=== PATIENT | female | born 1950 | race Caucasian/White ===

== ENCOUNTER 2017-09-19 03:24 | Observation (INO) | payer OTHER ==
[~2017-09-19] VITALS: Ht 170.2 cm; Wt 117.9 kg
[~2017-09-19 03:24] MED LIST: AMARYL1 MG PO; AMBIEN 10MG10 MG PO; ATORVASTATIN CA40 M1 PO; ATORVASTATIN CA40 MG PO; BREO ELLIPTA 21 EACH INH; CELEXA20 MG PO; CITALOPRAM HBR40 MG PO; CITALOPRAM40 MG PO; CLOPIDOGREL75 M1 PO; CLOPIDOGREL75 MG PO; DRISDOL50000 IU PO; GLIPIZIDE5 M2 PO; ILEVRO1.7 ML OD; LOPRESSOR 25MG25 MG PO; LORAZEPAM0.5 M1 PO; LYRICA50 M1 PO; LYRICA50 MG PO; METFORMIN HCL500 M3 PO; METFORMIN HCL500 MG PO; METOPROLOL TART25 M1 PO; PREDNISOLONE ACE5 ML OD; VENTOLIN H0.09 MG/Ac INH; VENTOLIN HFA18 GM INH; VITAB121000 PO; ZOLPIDEM TARTRA10 M1 PO; ZYMAXID2.5 ML OD
--- NOTE | 2017-09-19 03:31 | ED MVC/FALL/TRAUMA COMPLAINT ---
History of Present Illness General Chief Complaint: Fall Stated Complaint: BIBA FALL Source: patient, EMS Exam Limitations: no limitations Vital Signs & Intake/Output Vital Signs & Intake/Output Vital Signs Date Time Temp Pulse Resp B/P B/P Pulse O2 O2 Flow FiO2 Mean Ox Delivery Rate 09/19 0519 97.7 90 16 155/65 97 09/19 0348 97 Room Air 09/19 0329 98.7 100 20 156/72 97 Room Air Allergies Coded Allergies: Penicillins (SWELLING ALL OVER PER PT 09/14/17) cat dander (SWELLING ALL OVER PER PT 09/14/17) prochlorperazine (From COMPAZINE) (SWELLING ALL OVER PER PT 09/14/17) Reconcile Medications Albuterol Sulfate (Ventolin Hfa) 90 MCG HFA.AER.AD 2 PUF INH Q4-6 PRN PRN COPD (Reported) Atorvastatin Calcium 40 MG TABLET 1 TAB PO DAILY CHOLESTEROL (Reported) Citalopram Hydrobromide (Citalopram HBr) 40 MG TABLET 1 TAB PO DAILY MENTAL HEALTH (Reported) Clopidogrel Bisulfate (Clopidogrel) 75 MG TABLET 1 TAB PO DAILY BLOOD THINNER (Reported) Fluticasone/Vilanterol (Breo Ellipta 200-25 Mcg INH) 200 MCG-25 MCG/DOSE BLST.W.DEV 1 PUFF INH DAILY COPD (Reported) Gatifloxacin (Zymaxid) 0.5 % DROPS 1 GTT OD 4 TIMES/DAY RIGHT EYE (Reported) Glipizide 5 MG TABLET 1 TAB PO BID DM (Reported) Lorazepam 0.5 MG TABLET 1 TAB PO Q8H PRN ANXIETY (Reported) Metformin HCl 500 MG TABLET 1 TAB PO TID DM (Reported) Metoprolol Tartrate 25 MG TABLET 1 TAB PO BID HEART/BP (Reported) Nepafenac (Ilevro) 0.3 % DROPS.SUSP 1 DROP OD DAILY RIGHT EYE (Reported) Prednisolone Acetate 1 % DROPS.SUSP 1 GTT OD 4 TIMES/DAY RIGHT EYE (Reported) Pregabalin (Lyrica) 50 MG CAPSULE 1 CAP PO DAILY NERVE PAIN (Reported) Zolpidem Tartrate 10 MG TABLET 1 TAB PO QPM SLEEP (Reported) Triage Nurses Notes Reviewed? yes Onset: Abrupt Duration: minute(s): Timing: single episode today Severity: moderate Method of Injury: fall Loss of Consciousness: no loss of consciousness Modifying Factors: Improves With: rest. Associated Symptoms: confusion HPI: 67 yo woman on plavix, presents after a fall. Per the medics, "She was in her kitchen... It looks like a mechanical fall... Her family heard her fall and were right there. She did not appear to lose consciousness. She didn't seem to have any injury and she was axox4.... She said the year was 1948, but then quickly said it was new year's earl and the year was 2018." Per the patient, she says, "The kids were all around me... I was baking cookies. " The medics note that there was no appearance of recent baking in the kitchen. She denies pain, headache, neck pain. Past History Medical History Any Pertinent Medical History? see below for history Neurological: TIA EENT: NONE Cardiovascular: hypertension, CABG Respiratory: COPD, pulmonary embolism Gastrointestinal: NONE Hepatic: NONE Renal: NONE Musculoskeletal: NONE Psychiatric: anxiety, depression, insomnia Endocrine: diabetes History of MRSA: No History of VRE: No History of CDIFF: No Pneumonia Vaccine: 05/27/13 Influenza Vaccine: 06/30/13 Surgical History Surgical History: appendectomy, CABG, hernia repair-umbilical, TONSILS Psychosocial History Who do you live with Family Services at Home None What is your primary language Welsh Family History Family History, If Any: FATHER FH: heart disease FH: migraine headache FH: stroke Grandmother FH: heart disease FH: stroke Hx Contributory? No Review of Systems Review of Systems Constitutional: Reports: no symptoms. Eyes: Reports: no symptoms. Ears, Nose, Throat, Mouth: Reports: no symptoms. Respiratory: Reports: no symptoms. Cardiovascular: Reports: no symptoms. Gastrointestinal/Abdominal: Reports: no symptoms. Genitourinary: Reports: no symptoms. Musculoskeletal: Reports: no symptoms. Skin: Reports: no symptoms. Neurological/Psychological: Reports: no symptoms. All Other Systems: Reviewed and Negative Physical Exam Physical Exam General Appearance: mild distress Head: submental/mandibular bruising at contact with the hard collar forehead bruise 2cm. Eyes: Bilateral: normal appearance, PERRL, EOMI. Ears, Nose, Throat, Mouth: hearing grossly normal, moist mucous membrane Neck: normal inspection, supple, paraspinous muscle tender, no midline tenderness Respiratory: normal breath sounds, chest non-tender, no respiratory distress, quiet respiration, lungs clear Cardiovascular: regular rate/rhythm Gastrointestinal: normal bowel sounds, soft, non-tender, no organomegaly Back: normal inspection, normal range of motion, vertebral tenderness, muscle spasm, no vertebral tenderness Extremities: normal range of motion, bilateral knee diffuse tenderness. Neurologic/Psych: oriented x 3, pt knows name, place, date, but otherwise confused, "I was baking cookies" pt also slightly lethargic with slurred speach. no focal neuro deficit Skin: multiple bruises on chest, back at various ages. no focal tenderness. Core Measures ACS in differential dx? No CVA/TIA Diagnosis No Sepsis Present: No Sepsis Focused Exam Completed? No Progress Differential Diagnosis: C/T/L spine injury, ext injury, ICH Plan of Care: Orders Procedure Date/time Status CBC WITHOUT DIFFERENTIAL 09/20 0600 Active BASIC ELECTROLYTES PLUS BUN&CR 09/20 0600 Active Nothing by Mouth 09/19 B Active PT Evaluate & Treat 09/19 0631 Active Pathway - chart 09/19 0631 Active House Staff 09/19 0631 Active Patient Data 09/19 0631 Active Code Status 09/19 0631 Active Patient Data 09/19 0615 Active Saline Lock 09/[address] in observation 09/19 0608 Active Misc Message 09/19 0608 Active ED Holding Orders 09/19 0608 Active Vital Signs 09/19 0608 Active Code Status 09/19 0608 Complete Add-on Test (ER Only) 09/19 0450 Active Intake & Output 09/19 0348 Active URINE DRUGS OF ABUSE 09/19 0345 Complete ETHANOL 09/19 0340 Complete URINALYSIS 09/19 0334 Complete TROPONIN LEVEL 09/19 0334 Complete LIPASE 09/19 0334 Complete HEPATIC FUNCTION PANEL 09/19 0334 Complete CBC WITHOUT DIFFERENTIAL 09/19 0334 Complete BASIC METABOLIC PANEL 09/19 0334 Complete AMYLASE 09/19 0334 Complete EKG 09/19 0326 Active VTE Mechanical Prophylaxis 09/19 UNK Active Vital Signs 09/19 UNK Active MISTAKE 09/19 UNK Active Telemetry/Drain Cleaner 09/19 UNK Active Intake & Output 09/19 UNK Active Activity/Ambulation 09/19 UNK Active Laboratory Tests 09/19/ 0345: Urine Opiates Screen < 100.00, Methadone Screen 59, Barbiturate Screen < 60, Ur Phencyclidine Scrn < 6.00, Amphetamines Screen < 100, U Benzodiazepines Scrn < 85, Urine Cocaine Screen < 50, Urine Cannabis Screen < 5.00, Urine Color STRAW, Urine Clarity CLEAR, Urine pH 6.0, Ur Specific [place] <= 1.005, Urine Protein NEG, Urine Ketones NEG, Urine Nitrite NEG, Urine Bilirubin NEG, Urine Urobilinogen 0.2, Ur Leukocyte Esterase NEG, Ur Microscopic SEDIMENT EXAMINED, Urine RBC 1-3, Urine WBC RARE, Ur Epithelial Cells RARE, Urine Mucus RARE, Urine Hemoglobin TRACE-INTACT, Urine Glucose NEG 09/19/17 0340: Anion Gap 12, Estimated GFR > 60, BUN/Creatinine Ratio 16.7, Glucose 167 H, Calcium 9.6, Total Bilirubin 0.2, Direct Bilirubin 0.2, AST 24, ALT 33, Alkaline Phosphatase 113, Troponin I < 0.01, Total Protein 6.3, Albumin 3.8, Amylase < 30 L, Lipase 116, CBC w Diff NO MAN DIFF REQ, RBC 4.18 L, MCV 83.0, MCH 27.7, RDW 14.5, MPV 7.6, Gran % 58.2, Lymphocytes % 31.3, Monocytes % 8.1, Eosinophils % 1.9, Basophils % 0.5, Absolute Granulocytes 6.1, Absolute Lymphocytes 3.3, Absolute Monocytes 0.9 H, Absolute Eosinophils 0.2, Absolute Basophils 0, PUBS MCHC 33.4, Serum Alcohol < 10.0 Diagnostic Imaging: Viewed by Me: Radiology Read, CT Scan. Discussed w/RAD: Radiology Read, CT Scan. Radiology Impression: chest/abd/pelvic... soft tissue stranding. pulmonary nodule. otherwise benign... full report below. PATIENT: BEATA DE SANTIAGO PRESENT AGE: 67 PATIENT ACCOUNT NO: [id number] : 48 LOCATION: [facility] ORDERING PHYSICIAN: Jori Leal MD SERVICE DATE: EXAM TYPE: CAT - CT ABD & PELVIS W/O IV CONTRAS; CT CHEST WO IV CONTRAST EXAMINATION: CT CHEST, ABDOMEN AND PELVIS WITHOUT CONTRAST. CLINICAL INFORMATION: Fall, trauma. COMPARISON: No pertinent prior studies are available for comparison. TECHNIQUE: Multidetector volumetric imaging was performed from the thoracic inlet through the pubic symphysis without intravenous contrast. Sagittal and coronal reformatted images were obtained on the technologist workstation. Total exam dose-length product 1297 mGy-cm FINDINGS: CHEST: VASCULAR: The aorta is normal in caliber without evidence of aneurysm. Scattered atherosclerotic vascular calcification is noted. MEDIASTINUM: No mediastinal fluid or hematoma. No hilar or mediastinal lymphadenopathy. Sternotomy wires are noted. Three-vessel coronary artery calcification is noted. LUNG: Centrilobular emphysema is noted. A 5 mm subpleural pulmonary nodule is noted in the right upper lobe on series 5, slice 177. PLEURA: No pleural effusion. No pneumothorax. No pleural mass or thickening. CHEST WALL/AXILLA: Unremarkable. ABDOMEN/PELVIS : LIVER : The liver is normal in size, shape, and attenuation. No focal hepatic lesion or biliary ductal dilatation is present. GALLBLADDER, AND BILIARY TREE: There is cholelithiasis is noted without CT evidence of acute cholecystitis. PANCREAS: Normal; no mass or surrounding fluid. SPLEEN: Normal size. No focal lesion. ADRENAL GLANDS: Normal; no mass. KIDNEYS AND URETERS: The kidneys are normal in size, shape, and attenuation. No hydronephrosis, hydroureter, or calculi. URINARY BLADDER: No focal mass or wall thickening seen. No bladder calculi. GASTROINTESTINAL TRACT: No dilated or abnormal appearing small bowel. Sigmoid colonic diverticulosis is noted without diverticulitis. Normal appendix. VASCULAR STRUCTURES: Atherosclerotic vascular calcification is noted in the abdominal aorta without aneurysm. LYMPH NODES: No lymphadenopathy. The aorta is unremarkable. PELVIC VISCERA: Unremarkable. FREE FLUID: None. ABDOMINAL WALL: There is some asymmetric subcutaneous soft tissue stranding overlying the left hip. There is asymmetric subcutaneous density and stranding over the right flank. OSSEOUS STRUCTURES: Spinal alignment is maintained. No spinal fractures. Spondylosis with vacuum disc phenomenon is noted at L2-L3. No clavicle or scapula fracture. No displaced rib fracture seen. No sternal fracture seen. No sacral or pelvic fracture. The visualized hips are intact. IMPRESSION: 1. Subcutaneous soft tissue stranding over the right flank and left hip likely represents soft tissue contusion. No organizing hematoma. 2. Centrilobular emphysema. 3. 5 mm subpleural pulmonary nodule in the right upper lobe. If this patient is high risk which the presence of emphysema would suggest , consider follow-up CT in 12 months per Fleischner Society guidelines. 4. Diverticulosis without diverticulitis. DICTATED BY: Rian Underwood MD DATE/ TIME DICTATED:09/19/17446 GRAVITY PROSPECTING OBSERVER HELPER:AYAZ DATE/TIME TRANSCRIBED: 09/19/17446 CONFIDENTIAL, DO NOT COPY WITHOUT APPROPRIATE AUTHORIZATION. < Electronically signed in Other Vendor System> SIGNED BY: Rian Underwood MD 09/19/17 0501, bilateral knees... soft tissue swelling... no fx. Initial ED EKG: RBBB Departure Departure Disposition: STILL A PATIENT Condition: Stable Clinical Impression Primary Impression: Fall Secondary Impressions: Acute delirium, Contusion Referrals: Keanu BLOOD,Flroentino Elder (PCP/Family) Departure Forms: Customer Survey General Discharge Information Observation Note Spoke With: Yomi BLOOD,[facility] Physician Advisor Notified: HUDSON BLOOD,RK Elder Place Patient In: Non-ED OBS Care Area Rationale for Observation: My rational for observation is as follows . pt presents with fall and continues w/ delerium in the ED despite benign labs/ct scan. Pt admitted with similar symptoms in 2014, attributed to her ambien. In the ED presently, she continues with lethargy, slurred speech, perhaps due to ambien again, however etiology is uncertain. I discussed this with case management.... pt merits obs vs admission. Will place patient in obs, in expectation that her sensorium will clear. Pt may need PT eval and neuro consult if not improving.
[2017-09-19 03:52] LABS: ABSOLUTE BASOPHIL COUNT 0 /CUMM (0.0-0.2); ABSOLUTE EOSINOPHIL COUNT 0.2 /CUMM (0.0-0.7); ABSOLUTE GRANULOCYTE CT 6.1 /CUMM (1.4-6.5); ABSOLUTE LYMPH COUNT 3.3 /CUMM (1.2-3.4); ABSOLUTE MONOCYTE COUNT 0.9 /CUMM (0.10-0.60); BASOPHIL % 0.5 % (0.0-2.0); EOSINOPHIL % 1.9 % (0-5); GRANULOCYTE % 58.2 % (42.2-75.2); HEMATOCRIT 34.7 % (37-47); MEAN CORPUSCULAR HGB 27.7 PG (27.0-31.0); MEAN CORPUSCULAR HGB CONC 33.4 G/DL (33.0-37.0); MEAN PLATELET VOLUME 7.6 FL (7.4-10.4); PLATELET COUNT 424 /CUMM (130-400); RBC DISTRIBUTION WIDTH 14.5 % (11.5-14.5); RED BLOOD CELL CT 4.18 /CUMM (4.20-5.40); WHITE BLOOD CELL COUNT 10.5 /CUMM (4.8-10.8)
--- NOTE | 2017-09-19 04:51 | CT SCAN REPORT ---
EXAMINATION: CT HEAD WITHOUT CONTRAST CT CERVICAL SPINE WITHOUT CONTRAST CT FACIAL BONES WITHOUT CONTRAST CLINICAL INFORMATION: Fall, trauma COMPARISON: CT head dated 09/14/2017. TECHNIQUE: Imaging was performed from the skull base to vertex without intravenous administration of contrast. In addition, helical noncontrast CT imaging was acquired through the cervical spine and source images were reviewed along with axial reconstructions and sagittal and coronal MPRs. Finally, helical noncontrast CT imaging was acquired through the facial bones and source images were reviewed along with axial reconstructions and sagittal and coronal MPRs. Total exam dose-length product 1381 mGy-cm FINDINGS: HEAD: No intracranial mass, hemorrhage, or midline shift is visualized. The ventricles and sulci are age-appropriate. Cortical gupta to white differentiation is maintained without evidence of territorial infarct. Periventricular white matter hypoattenuation is noted compatible with mild chronic small vessel angiopathy. No extra-axial collections are identified. The paranasal sinuses and mastoid air cells are well aerated. CERVICAL SPINE: There is no evidence of acute cervical spine fracture. Vertebral body heights are maintained. No prevertebral soft tissue swelling. There is reversal of the normal cervical lordosis with multilevel degenerative change in the mid cervical spine from C4 through C7 characterized by intervertebral disc space narrowing, degenerative endplate irregularity, and osteophyte formation. There is some medialization of the proximal internal right carotid artery. FACIAL BONES: There is some swelling of the soft tissues over the left maxilla. There is no evidence of an acute facial bone fracture. The paranasal sinuses are well aerated. Patient is immediate dentulous with dentures noted. The orbits are unremarkable in appearance. IMPRESSION: 1. No acute intracranial pathology. Chronic small vessel angiopathy noted. 2. No evidence of acute traumatic injury to the cervical spine. Multilevel degenerative changes are noted. 3. Soft tissue swelling over the left maxilla. No evidence of maxillofacial bone fracture.
--- NOTE | 2017-09-19 05:01 | CT SCAN REPORT ---
EXAMINATION: CT CHEST, ABDOMEN AND PELVIS WITHOUT CONTRAST. CLINICAL INFORMATION: Fall, trauma. COMPARISON: No pertinent prior studies are available for comparison. TECHNIQUE: Multidetector volumetric imaging was performed from the thoracic inlet through the pubic symphysis without intravenous contrast. Sagittal and coronal reformatted images were obtained on the technologist workstation. Total exam dose-length product 1297 mGy-cm FINDINGS: CHEST: VASCULAR: The aorta is normal in caliber without evidence of aneurysm. Scattered atherosclerotic vascular calcification is noted. MEDIASTINUM: No mediastinal fluid or hematoma. No hilar or mediastinal lymphadenopathy. Sternotomy wires are noted. Three-vessel coronary artery calcification is noted. LUNG: Centrilobular emphysema is noted. A 5 mm subpleural pulmonary nodule is noted in the right upper lobe on series 5, slice 177. PLEURA: No pleural effusion. No pneumothorax. No pleural mass or thickening. CHEST WALL/AXILLA: Unremarkable. ABDOMEN/PELVIS : LIVER : The liver is normal in size, shape, and attenuation. No focal hepatic lesion or biliary ductal dilatation is present. GALLBLADDER, AND BILIARY TREE: There is cholelithiasis is noted without CT evidence of acute cholecystitis. PANCREAS: Normal; no mass or surrounding fluid. SPLEEN: Normal size. No focal lesion. ADRENAL GLANDS: Normal; no mass. KIDNEYS AND URETERS: The kidneys are normal in size, shape, and attenuation. No hydronephrosis, hydroureter, or calculi. URINARY BLADDER: No focal mass or wall thickening seen. No bladder calculi. GASTROINTESTINAL TRACT: No dilated or abnormal appearing small bowel. Sigmoid colonic diverticulosis is noted without diverticulitis. Normal appendix. VASCULAR STRUCTURES: Atherosclerotic vascular calcification is noted in the abdominal aorta without aneurysm. LYMPH NODES: No lymphadenopathy. The aorta is unremarkable. PELVIC VISCERA: Unremarkable. FREE FLUID: None. ABDOMINAL WALL: There is some asymmetric subcutaneous soft tissue stranding overlying the left hip. There is asymmetric subcutaneous density and stranding over the right flank. OSSEOUS STRUCTURES: Spinal alignment is maintained. No spinal fractures. Spondylosis with vacuum disc phenomenon is noted at L2-L3. No clavicle or scapula fracture. No displaced rib fracture seen. No sternal fracture seen. No sacral or pelvic fracture. The visualized hips are intact. IMPRESSION: 1. Subcutaneous soft tissue stranding over the right flank and left hip likely represents soft tissue contusion. No organizing hematoma. 2. Centrilobular emphysema. 3. 5 mm subpleural pulmonary nodule in the right upper lobe. If this patient is high risk which the presence of emphysema would suggest, consider follow-up CT in 12 months per Fleischner Society guidelines. 4. Diverticulosis without diverticulitis.
--- NOTE | 2017-09-19 05:12 | RADIOLOGY REPORT ---
EXAMINATION: KNEE RADIOGRAPHS, BILATERAL CLINICAL INFORMATION: Bilateral knee pain after fall COMPARISON: None TECHNIQUE: 4 views of each of the bilateral knees FINDINGS: Left knee: No fracture or dislocation. There are scattered surgical clips within the soft tissues. Some prepatellar soft tissue swelling is noted. Scattered atherosclerotic vascular calcifications are noted. No joint effusion. No significant degenerative changes. Right knee: No fracture or dislocation. Scattered atherosclerotic vascular calcifications are noted. No joint effusion. No significant degenerative changes. IMPRESSION: Mild prepatellar soft tissue swelling on the left. No acute osseous or articular abnormalities.
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
[2017-09-19 15:47] VITALS: BP 150/80
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
[2017-09-19 22:30] VITALS: BP 140/60
[2017-09-20 06:29] VITALS: BP 126/68
[2017-09-20 08:05] LABS: ABSOLUTE BASOPHIL COUNT 0 /CUMM (0.0-0.2); ABSOLUTE EOSINOPHIL COUNT 0.2 /CUMM (0.0-0.7); ABSOLUTE GRANULOCYTE CT 4.7 /CUMM (1.4-6.5); ABSOLUTE LYMPH COUNT 2.5 /CUMM (1.2-3.4); ABSOLUTE MONOCYTE COUNT 0.6 /CUMM (0.10-0.60); BASOPHIL % 0.4 % (0.0-2.0); EOSINOPHIL % 2.1 % (0-5); GRANULOCYTE % 58.9 % (42.2-75.2); HEMATOCRIT 31.7 % (37-47); MEAN CORPUSCULAR HGB 27.8 PG (27.0-31.0); MEAN CORPUSCULAR HGB CONC 33.5 G/DL (33.0-37.0); MEAN CORPUSCULAR VOLUME 82.9 FL (81.0-99.0); MEAN PLATELET VOLUME 7.8 FL (7.4-10.4); PLATELET COUNT 365 /CUMM (130-400); RBC DISTRIBUTION WIDTH 14.6 % (11.5-14.5); RED BLOOD CELL CT 3.82 /CUMM (4.20-5.40)
--- NOTE | 2017-09-20 10:34 | PN-Observation ---
Lynne BLOOD,Mahi 09/20/17 1034: Observation Note Observation Note _ I have personally examined BEATA DE SANTIAGO. her disposition is uncertain at this time. Before a determination can be made, she requires continued observation for the following reasons altered mental status with history of TIA on chornic blood thinners, fall Assessment/Plan Assessment: Assessment: Patient is a 67 y F with past medical history significant for CABG, COPD, history of PE in 2007, multiple TIAs, last on 04/2015 who presented after a fall family were not present/did not respond for interview reported hitting head, found to have altered mental status exam, no other associated symptoms. Troponins negative on admission and toxicology negative. CT head on admission was unremarkable. CT chest, abd/pelvis: Unremarkable, pulmonary nodule, diverticulosis without diverticulitis. Knee x-ray was unremarkable but did show some mild prepatellar soft tissue swelling on the left side where she fell. Patient now is alert and oriented 3 but does not remember the fall. Patient was placed under observation in telemetry floor for management of following conditions: Altered mental status Delirium/ rule out TIA/history of multiple TIA our DD for this acute in mental status includes TIA (considering previous history) and acute deliurum. The other unlikely differential diagnosis includes seizure (patient didn't have convulsive activity, incontinance, post ictal), encephalitis (no fever, no other signs of localization), the neuroma related to vascular dementia (patient had several TIAs which could lead to dementia). Multi-pharmacy may be the cause of the patient's acute delirium (ativan, gabapentin and zolpidem). Altered mental status can also occur with B12/folate deficiency. -And decreased frequency of neurochecks -Continue patient's Plavix which she is on for recurrent TIAs -Continue 40 mg Lipitor -B12 level returned low, start the patient on B12 injections here with plan to transition to by mouth on discharge -Vitamin D level found to be low so we will give 2000 international units of vitamin D -Hemoglobin A1c level is 7.3 showing less than desirable blood glucose levels. Patient will need to follow-up with PCP for better control. -Follow up MRI and EEG today -Hold Ambien, benzodiazepines, zolpidem that could precipitate altered mental status. -We'll refer to sourcing engineer on discharge -We will refer to neurologist likely on discharge. Patient was told that she should follow-up with neurology several times before but did not go. She states now that she is going to go. Chronic medical conditions: CAD, DM, depression, insomina, reactive airway disease We will hold oral diabetic medications, we will place patient in sliding scale and Accu-Cheks. 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 We will continue rest of home medications. -Continue citalopram -Continue inhalers - TRC/Nebs Incidental pulmonary nodule: There is no CAT scan available for review, the last CXR from 2014 did not reveal any nodule. We will have patient to follow in oupatient regarding this finding. - outpatient follow for pulmonary nodule Disposition PT cleared the patient for home and self care Full code NPO, failed bedside swallow evalaution, repeat in morning DVT PPx: Mechanical and pharmacological Problem List: 1. Fall 2. Delirium Subjective Follow-up For: altered mental status and fall Tele-Events Since Last Visit: Normal sinus rhythm at 65-88 Subjective: Patient was seen and examined bedside. She states that she has pain throughout from the fall and complains of bruising. The patient is alert and oriented 3. She states that she does not feel confused. Review of Systems Constitutional: Reports: weakness. EENTM: Reports: no symptoms. Cardiovascular: Reports: no symptoms. Respiratory: Reports: no symptoms. Gastrointestinal: Reports: no symptoms. Genitourinary: Reports: no symptoms. Musculoskeletal: Reports: back pain, joint pain, muscle pain. Hematologic/Endocrine: Reports: bruising. Objective Last 24 Hrs of Vital Signs/I&O Vital Signs Date Time Temp Pulse Resp B/P B/P Pulse O2 O2 Flow FiO2 Mean Ox Delivery Rate 09/20 1424 98.4 100 18 130/70 92 Room Air 09/20 0800 Room Air 09/20 0629 98.9 98 18 126/68 95 Room Air 09/19 2230 97.5 82 20 140/60 95 Room Air Intake & Output 09/20 1600 09/20 0800 09/20 0000 Intake Total 684 120 240 Output Total 100 Balance 584 120 240 Intake, Oral 684 120 240 Output, Urine 100 Physical Exam General Appearance: Alert, Oriented X3, Cooperative, No Acute Distress Skin: No Breakdown, SCATTERED ECCHYMOSES Skin Temp/Moisture Exam: Warm/Dry Sepsis Skin Exam (color): Normal for Ethnicity HEENT: Atraumatic Neck: Supple Cardiovascular: Regular Rate, Normal S1, Normal S2, No Murmurs Lungs: Clear to Auscultation Abdomen: Normal Bowel Sounds, Soft, No Tenderness, No Hepatospenomegaly Neurological: Normal Speech, Cranial Nerves 3-12 NL, Reflexes 2+, PATIENT HAS DECREASED SENSATION ON HER HANDS AND FEET SECONDARY TO DIABETIC NEUROPATHY. pATIENT NORMALLY TAKES lYRICA. Extremities: No Clubbing, No Cyanosis, No Edema, Normal Pulses, No Tenderness/ Swelling Vascular: Normal Pulses, Pulses Symmetrical Current Medications: Current Medications Sig/Kwadwo Start time Last Medication Dose Route Stop Time Status Admin Acetaminophen 650 MG Q6P PRN 09/19 0945 AC 09/19 PO 2056 Albuterol Sulfate 2 PUF Q4-6 PRN PRN 09/19 1245 AC INH Albuterol Sulfate 3 ML Q4H PRN 09/19 0900 AC 09/19 INH 0909 Atorvastatin Calcium 40 MG 1700 09/19 0915 AC 09/19 PO 1258 Budesonide/ 2 PUF BID 09/20 1008 AC 09/20 Formoterol Fumarate INH 1239 Cholecalciferol 1,000 IU DAILY 09/20 1000 CAN PO Cholecalciferol 2,000 IU DAILY 09/20 1000 AC 09/20 PO 1238 Cholecalciferol 1,000 IU DAILY 09/19 1917 DC 09/20 PO 0932 Citalopram 40 MG DAILY 09/19 1237 AC 09/20 Hydrobromide PO 0932 Clopidogrel Bisulfate 75 MG DAILY 09/19 1235 AC 09/20 PO 0932 Cyanocobalamin 250 MCG DAILY 09/20 1000 CAN PO Cyanocobalamin 1,000 MCG Q168 09/20 1000 AC 09/20 IM 1239 Cyanocobalamin 1,000 MCG DAILY 09/19 1916 DC 09/20 PO 0932 Enoxaparin Sodium 40 MG DAILY 09/19 1003 AC 09/20 SC 0933 Insulin Aspart 0 TIDAC 09/19 1700 AC 09/20 SC 1238 Non-Formulary 0 SEE ADMIN CRITERIA 09/19 1245 DC Medication ANY Trazodone HCl 25 MG AT BEDTIME PRN 09/19 1930 AC 09/19 PO 2054 Last 24 Hrs of Labs/Mics: Laboratory Tests 09/20/17 0635: Anion Gap 9, Estimated GFR > 60, BUN/Creatinine Ratio 15.0, CBC w Diff NO MAN DIFF REQ, RBC 3.82 L, MCV 82.9, MCH 27.8, RDW 14.6 H, MPV 7.8, Gran % 58.9, Lymphocytes % 31.6, Monocytes % 7.0, Eosinophils % 2.1, Basophils % 0.4, Absolute Granulocytes 4.7, Absolute Lymphocytes 2.5, Absolute Monocytes 0.6, Absolute Eosinophils 0.2, Absolute Basophils 0, PUBS MCHC 33.5 Peyman Cid 09/20/17 1418: Attending MD Review Statement Attending Statement Attending MD Statement: examined this patient, discuss w/resident/PA/GASSER MACHINE OPERATOR, agreed w/resident/PA/GASSER MACHINE OPERATOR, reviewed EMR data (avail), discussed w/case mgmt Attending Assessment/Plan: Awaiting MRI brain and EEg. Will f/u on that. Increase vit d supplementation to 2000U daily for Vit D deficiency. Vit B12 def- start on daily shots while in hospital and switch to po at time of discharge.
[2017-09-20 14:24] VITALS: BP 130/70
--- NOTE | 2017-09-20 20:01 | ELECTROENCEPHALOGRAM REPORT ---
Electroencephalogram Report Electroencephalogram Results Date of service: 09/20/17 Attending MD: Peyman Cid MD Retirement Plan Counselor: Krish EEG Number: [id number] Test Utilizes: 10-20 system, 21 lead 18 channel digital recording Pertinent Hx/Physical/Neuro Findings/Clin Diagnosis: Patient with delirium/confusion. Inpatient Medications: Current Medications Sig/Kwadwo Start time Last Medication Dose Route Stop Time Status Admin Acetaminophen 650 MG Q6P PRN 09/19 0945 AC 09/20 PO 1728 Albuterol Sulfate 2 PUF Q4-6 PRN PRN 09/19 1245 AC INH Albuterol Sulfate 3 ML Q4H PRN 09/19 0900 AC 09/19 INH 0909 Atorvastatin Calcium 40 MG 1700 09/19 0915 AC 09/20 PO 1727 Budesonide/ 2 PUF BID 09/20 1008 AC 09/20 Formoterol Fumarate INH 1239 Cholecalciferol 1,000 IU DAILY 09/20 1000 CAN PO Cholecalciferol 2,000 IU DAILY 09/20 1000 AC 09/20 PO 1238 Cholecalciferol 1,000 IU DAILY 09/19 1917 DC 09/20 PO 0932 Citalopram 40 MG DAILY 09/19 1237 AC 09/20 Hydrobromide PO 0932 Clopidogrel Bisulfate 75 MG DAILY 09/19 1235 AC 09/20 PO 0932 Cyanocobalamin 250 MCG DAILY 09/20 1000 CAN PO Cyanocobalamin 1,000 MCG Q168 09/20 1000 AC 09/20 IM 1239 Cyanocobalamin 1,000 MCG DAILY 09/19 1916 DC 09/20 PO 0932 Enoxaparin Sodium 40 MG DAILY 09/19 1003 AC 09/20 SC 0933 Insulin Aspart 0 TIDAC 09/19 1700 AC 09/20 SC 1238 Non-Formulary 0 SEE ADMIN CRITERIA 09/19 1245 DC Medication ANY Trazodone HCl 25 MG AT BEDTIME PRN 09/19 1930 AC 09/19 PO 4 Interpretation: The recording demonstrates the expected frequency gradient during wakefulness, with fatser frequencies being up front and slower in the posterior regions. There is overall good symmetry in amplitude and frequency between the two hemispheres. The prevailing background is composed of fast beta in the frontal regions and a posterior dominant rhythm of 8-9 hertz in the posterior regions. Otherwise, there are no paroxysmal features as sharps or spikes. No focal slowing. Impression: Normal EEG in the awake state.
[2017-09-20 22:44] VITALS: BP 106/70
[2017-09-21 06:51] VITALS: BP 118/72
--- NOTE | 2017-09-21 11:18 | PN-Observation ---
Mahi Batista MD 09/21/17 1117: Observation Note Observation Note _ I have personally examined BEATA DE SANTIAGO. her disposition is uncertain at this time. Before a determination can be made, she requires continued observation for the following reasons syncopal episode and fall Assessment/Plan Assessment: Assessment: Patient is a 67 y F with past medical history significant for CABG, COPD, history of PE in 2007, multiple TIAs, last on 04/2015 who presented after a fall family were not present/did not respond for interview reported hitting head, found to have altered mental status exam, no other associated symptoms. Troponins negative on admission and toxicology negative. CT head on admission was unremarkable. CT chest, abd/pelvis: Unremarkable, pulmonary nodule, diverticulosis without diverticulitis. Knee x-ray was unremarkable but did show some mild prepatellar soft tissue swelling on the left side where she fell. Patient now is alert and oriented 3 but does not remember the fall. She had an EEG yesterday which was found to be negative. Patient had an MRI today which was unchanged from previous. Patient was placed under observation in telemetry floor for management of following conditions: Altered mental status Delirium/ rule out TIA/history of multiple TIA our DD for this acute in mental status includes TIA (considering previous history) and acute deliurum. The other unlikely differential diagnosis includes seizure (patient didn't have convulsive activity, incontinance, post ictal), encephalitis (no fever, no other signs of localization), the neuroma related to vascular dementia (patient had several TIAs which could lead to dementia). Multi-pharmacy may be the cause of the patient's acute delirium (ativan, gabapentin and zolpidem). Altered mental status can also occur with B12/folate deficiency. -As EEG and MRI were negative, we are treating this delirium as likely TIA with addition of issue of polypharmacy -Continue patient's Plavix which she is on for recurrent TIAs last one in 2014 -Continue 40 mg Lipitor -B12 level returned low, start the patient on B12 injections here with by mouth prescription on discharge -Vitamin D level found to be low so we will give 2000 international units of vitamin D we will continue outpatient -Hemoglobin A1c level is 7.3 showing less than desirable blood glucose levels. Patient will need to follow-up with PCP for better control. His recent blood sugar is 154 -Hold benzodiazepines, zolpidem that could precipitate altered mental status. We will prescribed trazodone and melatonin for sleep on discharge -We will refer to neurologist likely on discharge. Patient was told that she should follow-up with neurology several times before but did not go. She states now that she is going to go. Chronic medical conditions: CAD, DM, depression, insomina, reactive airway disease We will hold oral diabetic medications, we will place patient in sliding scale and Accu-Cheks. 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 We will continue rest of home medications. -Continue citalopram -Continue inhalers - TRC/Nebs Incidental pulmonary nodule: There is no CAT scan available for review, the last CXR from 2014 did not reveal any nodule. We will have patient to follow in oupatient regarding this finding. - outpatient follow for pulmonary nodule Disposition PT cleared the patient for home and self care Full code NPO, failed bedside swallow evalaution, repeat in morning DVT PPx: Mechanical and pharmacological Problem List: 1. TIA (transient ischemic attack) 2. Polypharmacy Subjective Follow-up For: Syncopal episode Fall Tele-Events Since Last Visit: Sinus rhythm at 71-82 Subjective: Patient seen and examined today. She states that she did not sleep well. She states that she had a headache for a couple days and attributes it to her eyes which she notes there is a twitch in her right eye for 2 years that got worse after she had a recent cataract surgery in July and August. Review of Systems Constitutional: Reports: no symptoms. Musculoskeletal: Reports: back pain, muscle pain. Neurological/Psychological: Reports: headache. Hematologic/Endocrine: Reports: bruising. Objective Last 24 Hrs of Vital Signs/I&O Vital Signs Date Time Temp Pulse Resp B/P B/P Pulse O2 O2 Flow FiO2 Mean Ox Delivery Rate 09/21 1256 96 Room Air 09/21 0800 94 Room Air 09/21 0651 98.7 68 20 118/72 94 Room Air 09/20 2244 98.4 95 20 106/70 95 Room Air Intake & Output 09/21 1600 09/21 0800 09/21 0000 Intake Total 360 600 Output Total Balance 360 600 Intake, Oral 360 600 Physical Exam General Appearance: Alert, Oriented X3, Cooperative, No Acute Distress Skin: No Rashes, No Breakdown Skin Temp/Moisture Exam: Warm/Dry HEENT: Atraumatic Cardiovascular: Regular Rate, Normal S1, Normal S2, No Murmurs Lungs: Clear to Auscultation, Normal Air Movement Abdomen: Normal Bowel Sounds, Soft, No Tenderness Neurological: Normal Speech Extremities: No Clubbing, No Cyanosis, No Edema, Normal Pulses, No Tenderness/ Swelling Current Medications: Current Medications Sig/Kwadwo Start time Last Medication Dose Route Stop Time Status Admin Acetaminophen 650 MG .STK-MED ONE 09/20 2207 DC PO 09/20 2208 Acetaminophen 650 MG .STK-MED ONE 09/20 1728 DC PO 09/20 1729 Acetaminophen 650 MG Q6P PRN 09/19 0945 DCD 09/20 PO 2209 Albuterol Sulfate 2 PUF Q4-6 PRN PRN 09/19 1245 DCD INH Albuterol Sulfate 3 ML Q4H PRN 09/19 0900 DCD 09/19 INH 0909 Atorvastatin Calcium 40 MG 1700 09/19 0915 DCD 09/20 PO 1727 Budesonide/ 2 PUF BID 09/20 1008 DCD 09/21 Formoterol Fumarate INH 0921 Cholecalciferol 2,000 IU DAILY 09/20 1000 DCD 09/21 PO 0921 Citalopram 40 MG DAILY 09/19 1237 DCD 09/21 Hydrobromide PO 0921 Clopidogrel Bisulfate 75 MG DAILY 09/19 1235 DCD 09/21 PO 0921 Cyanocobalamin 1,000 MCG Q168 09/20 1000 DCD 09/20 IM 1239 Enoxaparin Sodium 40 MG DAILY 09/19 1003 DCD 09/21 SC 0921 Insulin Aspart 0 TIDAC 09/19 1700 DCD 09/21 SC 0919 Trazodone HCl 25 MG AT BEDTIME PRN 09/19 1930 DCD 09/20 PO 2221 Cid,Kanwardeep 09/21/17 1558: Attending MD Review Statement Attending Statement Attending MD Statement: examined this patient, discuss w/resident/PA/BIBLICAL LANGUAGES PROFESSOR, agreed w/resident/PA/BIBL[employer] LANGUAGES PROFESSOR, reviewed EMR data (avail), discussed w/nursing, discussed w/ case mgmt Attending Assessment/Plan: Pt seen and examined, MRI brain shows no acute stroke. plan dc today. see dc summary for more details.
--- NOTE | 2017-09-21 13:26 | MRI REPORT ---
EXAMINATION: MR BRAIN WITHOUT CONTRAST CLINICAL INFORMATION: Slurred speech and unsteady gait. COMPARISON: Head CT from 09/19/2017. MRI of the brain from 03/14/2015. TECHNIQUE: MRI of the brain without contrast was obtained using routine sequences. FINDINGS: No acute brain ischemia. There is a punctate focus of susceptibility artifact in the cortex of the posterior right temporal lobe, suggesting a tiny incidental focus of mineralization when correlated with CT, and unchanged from prior MRI. There is mild generalized prominence of the ventricles, sulci, and extra-axial CSF spaces as well as mild to moderate hypoattenuation in the periventricular white matter bilaterally. Some foci appear radially oriented with respect to the corpus callosum. Some of these areas are slightly low signal on the T1-weighted images. There is mild prominence of the perivascular spaces in the basal ganglia bilaterally. There is minor T2 prolongation in the posterior ruth. There is 3 mm round focus of T2 prolongation in the right temporal occipital subcortical region, unchanged, most likely a chronic lacune. These parenchymal changes are stable with respect to the prior MRI. There is no extra-axial collection, mass effect, or shift of the normally midline structures. The major arterial and venous flow voids are preserved. The craniocervical junction and supersellar region appear unremarkable. Marrow signal is maintained. No upper cervical adenopathy. The imaged paranasal sinuses, nasal cavity, nasopharynx, and mastoid air cells appear clear. There have been bilateral ocular lens extractions. No acute soft tissue abnormalities. IMPRESSION: No acute intracranial abnormality. There is mild T2 prolongation in the bihemispheric white matter, similar in configuration to the prior MRI of 2014. Although this is most likely on the basis of mild chronic microangiopathy, given a few radially oriented foci of T2 prolongation, demyelinating processes are not entirely excluded.
--- NOTE | 2017-09-21 13:27 | Patient Discharge Instructions ---
Discharge Instructions General Discharge Information You were seen/treated for: questionable tia/polypharmacy (several sedative drugs that may have altered mental status) Special Instructions: 1. please follow up with primary care in one week 2. please follow up with dr. medina in 1-2 weeks Diet Continue normal diet: Yes Activity Full Activity/No Limits: Yes Acute Coronary Syndrome Inclusion Criteria At DC or during hospital stay patient has or had the following: ACS DIAGNOSIS No Discharge Core Measures Meds if any: Prescribed or Continued at Discharge Meds if any: NOT Prescribed or Continued at Discharge Congestive Heart Failure Inclusion Criteria At DC or during hospital stay patient has or had the following: CHF DIAGNOSIS No Discharge Core Measures Meds if any: Prescribed or Continued at Discharge Meds if any: NOT Prescribed or Continued at Discharge Cerebrovascular accident Inclusion Criteria At DC or during hospital stay patient has or had the following: CVA/TIA Diagnosis Yes Discharge Core Measures Meds if any: Prescribed or Continued at Discharge Anticoagulant Yes (plavix) Meds if any: NOT Prescribed or Continued at Discharge Venous thromboembolism Inclusion Criteria VTE Diagnosis No VTE Type NONE VTE Confirmed by (Test) NONE Discharge Core Measures - Per Current guidelines, there needs to be overlap - treatment for the first 5 days of Warfarin therapy. - If discharged on Warfarin prior to 5 days of - overlap therapy, the patient will need to be - assessed for post discharge needs including - *Post discharge parental anticoagulation - *Warfarin and/or parental anticoagulation education - *Follow up date to check INR post discharge At least 5 days overlap therapy as Inpatient No Meds if any: Prescribed or Continued at Discharge Note: Overlap Therapy is Warfarin and Anticoagulant Meds if any: NOT Prescribed or Continued at Discharge
--- NOTE | 2017-09-21 13:39 | Discharge Summary ---
Hospital Course Allergies: Coded Allergies: Penicillins (ITCHING 09/26/17) cat dander (SWELLING ALL OVER PER PT 09/14/17) prochlorperazine (From COMPAZINE) (SWELLING ALL OVER PER PT 09/14/17) Discharge Instructions Medications at Discharge Discharge Medications: Stop taking the following medications: Lorazepam (Lorazepam) 0.5 MG TABLET ORAL Q8H as needed for ANXIETY Qty = 60 Zolpidem Tartrate (Zolpidem Tartrate) 10 MG TABLET ORAL Every night Qty = 90 Continue taking these medications: Clopidogrel Bisulfate (Clopidogrel) 75 MG TABLET 1 Tablet ORAL DAILY Qty = 90 Comments: Last Taken: 09/21/17 Time: 0900 Metoprolol Tartrate (Metoprolol Tartrate) 25 MG TABLET 1 Tablet ORAL TWICE DAILY Qty = 180 Comments: not given in hospital Citalopram Hydrobromide (Citalopram HBr) 40 MG TABLET 1 Tablet ORAL DAILY Qty = 90 Comments: Last Taken: 09/21/17 Time: 0900 Pregabalin (Lyrica) 50 MG CAPSULE 1 Capsule ORAL DAILY Qty = 90 Comments: not given in hospital Glipizide (Glipizide) 5 MG TABLET 1 Tablet ORAL TWICE DAILY Qty = 180 Comments: not given in hosopital Albuterol Sulfate (Ventolin Hfa) 90 MCG HFA.AER.AD 2 Puff Inhale through mouth EVERY 4-6 HOURS NEEDED as needed for COPD Qty = 54 Atorvastatin Calcium (Atorvastatin Calcium) 40 MG TABLET 1 Tablet ORAL DAILY Qty = 90 Comments: Last Taken: 09/20/17 Time: 1700 Fluticasone/Vilanterol (Breo Ellipta 200-25 Mcg INH) 200 MCG-25 MCG/DOSE BLST.W.DEV 1 PUFF Inhale through mouth DAILY Qty = 60 Comments: not given in hospital Symicort given at 0900 Metformin HCl (Metformin HCl) 500 MG TABLET 1 Tablet ORAL THREE TIMES DAILY Qty = 270 Comments: not given in hospital Prednisolone Acetate (Prednisolone Acetate) 1 % DROPS.SUSP 1 Drop Right Eye 4 TIMES A DAY Qty = 15 Comments: not given in hospital Gatifloxacin (Zymaxid) 0.5 % DROPS 1 Drop Right Eye 4 TIMES A DAY Qty = 3 Comments: not given in hospital Nepafenac (Ilevro) 0.3 % DROPS.SUSP 1 DROP Right Eye DAILY Qty = 2 Comments: not given in hospital Start taking the following new medications: Trazodone HCl (Trazodone HCl) 50 MG TABLET 1 Tablet ORAL Every night as needed for SLEEP Qty = 30 No Refills Melatonin (Melatonin) 3 MG TABLET 1 Tablet ORAL Every night as needed for SLEEP Qty = 30 No Refills Cholecalciferol (Vitamin D3) (Vitamin D) 2,000 UNIT CAPSULE 1 Capsule ORAL DAILY Qty = 30 No Refills Cyanocobalamin (Vitamin B-12) 1,000 MCG TABLET 1 Tablet ORAL DAILY Qty = 30 No Refills
[2017-09-21] MEDS ORDERED: TRAZODONE HCL50 M1 PO (14:05)
[2017-09-21] MEDS ORDERED: VITAMIN D2000 UNIT PO (14:05)
[2017-09-21] MEDS ORDERED: MELATONIN3 M4 PO (14:05)
[2017-09-21] MEDS ORDERED: VITAMIN B-121000 MC3 PO (14:05)
== END 2017-09-21 15:50 ==
LOC: ERH 03:24 → ERHI 06:08 → 1NO 06:08 → ENRESERV 12:47 → ERHI 14:27 → ENTRNSPT 14:54 → 1NO 15:15 → CMPTRNSPT 15:31 → 1NO 09-20 09:40 → ENPENDDIS 09-21 14:06 → 1NO 09-21 15:50
PROVIDERS: Internal Medicine; Pediatrics
DX: F05 Delirium due to known physiological condition (principal); G47.00 Insomnia, unspecified; Z95.1 Presence of aortocoronary bypass graft; J44.9 Chronic obstructive pulmonary disease, unspecified; Z86.711 Personal history of pulmonary embolism; Z79.82 Long term (current) use of aspirin; Z86.73 Personal history of transient ischemic attack (TIA), and cerebral infarction without residual deficits; W18.30XA Fall on same level, unspecified, initial encounter; Y92.009 Unspecified place in unspecified non-institutional (private) residence as the place of occurrence of the external cause; E53.8 Deficiency of other specified B group vitamins; F41.9 Anxiety disorder, unspecified; F32.9 Major depressive disorder, single episode, unspecified; R91.1 Solitary pulmonary nodule; R26.9 Unspecified abnormalities of gait and mobility; E11.9 Type 2 diabetes mellitus without complications; Z79.4 Long term (current) use of insulin; Z79.84 Long term (current) use of oral hypoglycemic drugs; I10 Essential (primary) hypertension; E11.40 Type 2 diabetes mellitus with diabetic neuropathy, unspecified; Z79.899 Other long term (current) drug therapy; E55.9 Vitamin D deficiency, unspecified
CPT/HCPCS: 1263; 70551; 36415; 73562-LT; 73562-RT; 74176; 80307; 81001; 82436; 92610-GN; 93005; 93010; 95816; 96372; 97110-GP; 97116-GP; 97162-GP; G0378; G0480; G8978-GP; G8979-GP; G8980-GP; G8996-GN; G8997-GN; J0131; J1650; J3420; J3490; J7042

== ENCOUNTER 2017-09-26 05:34 | Inpatient (IN) | payer OTHER ==
[~2017-09-26] VITALS: Ht 154.9 cm; Wt 79.8 kg
[~2017-09-26 05:34] MED LIST changes: +MELATONIN3 M4 PO; +TRAZODONE HCL50 M1 PO; +VITAMIN B-121000 MC3 PO; +VITAMIN D2000 UNIT PO
--- NOTE | 2017-09-26 05:44 | ED DYSPNEA/ASTHMA COMPLAINT ---
History of Present Illness General Chief Complaint: Syncope and Near-Syncope Stated Complaint: ?SYNCOPAL EPISODE, SOB Source: patient, old records, EMS Exam Limitations: confusion Vital Signs & Intake/Output Vital Signs & Intake/Output Vital Signs Date Time Temp Pulse Resp B/P B/P Pulse O2 O2 Flow FiO2 Mean Ox Delivery Rate 09/26 0755 101.1 09/26 0724 102.4 09/26 0644 102.4 111 20 98/56 95 Nasal 2.0L Cannula 09/26 0601 100 Aerosol 8L Mask 09/26 0535 102.4 111 26 128/61 100 Aerosol 8L Mask Triage Nurses Notes Reviewed? yes Onset: Gradual Duration: day(s): Timing: recent history Prior Episodes/Possible Cause: no prior episodes Associated Symptoms: weakness, dizziness HPI: 67yo woman presents with with pmh of insomnia, CABG, COPD, history of PE, on xarelto, multiple TIAs (accorindg to chart last one in 04/2104), discharged on 09/21/17 after a fall with confusion, present this morning with fever, diarrhea, cough, nausea, vomiting intermittently over the past 3-4 days, although she is feeling worse. She shares that she has not been eating or drinking, "and that has made me really dizzy... I've almost passed out." She has a cough with phlegm, "green and brown." She notes the fever and dyspnea got worse, such that this morning, she was breathless at rest. She notes also several loose bowel movements over the past 2-3 days. Her last vomitus was 2 days ago. She notes no chest pain, palpitations, head injury, or loss of consciousness. Per her son, she fell this morning... "I heard a large boom." No loss of consciousness. 911 was called. Her 02 sat upon arrival was 88-89%. She received solumedrol 125mg iv en route. (Mel BLOOD,Jori Guillermo) Allergies Coded Allergies: Penicillins (ITCHING 09/26/17) cat dander (SWELLING ALL OVER PER PT 09/14/17) prochlorperazine (From COMPAZINE) (SWELLING ALL OVER PER PT 09/14/17) Reconcile Medications Albuterol Sulfate (Ventolin Hfa) 90 MCG HFA.AER.AD 2 PUF INH Q4-6 PRN PRN COPD (Reported) Atorvastatin Calcium 40 MG TABLET 1 TAB PO DAILY CHOLESTEROL (Reported) Cholecalciferol (Vitamin D3) (Vitamin D) 2,000 UNIT CAPSULE 1 CAP PO DAILY LOW VIT D Citalopram Hydrobromide (Citalopram HBr) 40 MG TABLET 1 TAB PO DAILY MENTAL HEALTH (Reported) Clopidogrel Bisulfate (Clopidogrel) 75 MG TABLET 1 TAB PO DAILY BLOOD THINNER (Reported) Cyanocobalamin (Vitamin B-12) 1,000 MCG TABLET 1 TAB PO DAILY LOW B12 Fluticasone/Vilanterol (Breo Ellipta 200-25 Mcg INH) 200 MCG-25 MCG/DOSE BLST.W.DEV 1 PUFF INH DAILY COPD (Reported) Gatifloxacin (Zymaxid) 0.5 % DROPS 1 GTT OD 4 TIMES/DAY RIGHT EYE (Reported) Glipizide 5 MG TABLET 1 TAB PO BID DM (Reported) Melatonin 3 MG TABLET 1 TAB PO QPM PRN SLEEP Metformin HCl 500 MG TABLET 1 TAB PO TID DM (Reported) Metoprolol Tartrate 25 MG TABLET 1 TAB PO BID HEART/BP (Reported) Nepafenac (Ilevro) 0.3 % DROPS.SUSP 1 DROP OD DAILY RIGHT EYE (Reported) Prednisolone Acetate 1 % DROPS.SUSP 1 GTT OD 4 TIMES/DAY RIGHT EYE (Reported) Pregabalin (Lyrica) 50 MG CAPSULE 1 CAP PO DAILY NERVE PAIN (Reported) Trazodone HCl 50 MG TABLET 1 TAB PO QPM PRN SLEEP Zolpidem Tartrate 10 MG TABLET 1 TAB PO QPMP PRN SLEEP (Reported) (Mansoor BLOOD,Mar) Past History Travel History Traveled to [place] past 21 day No Medical History Any Pertinent Medical History? see below for history Neurological: TIA EENT: NONE Cardiovascular: hypertension, CABG Respiratory: COPD, pulmonary embolism Gastrointestinal: NONE Hepatic: NONE Renal: NONE Musculoskeletal: NONE Psychiatric: anxiety, depression, insomnia Endocrine: diabetes Cancer(s): NONE TOBACCO WETTER/Reproductive: NONE History of MRSA: No History of VRE: No History of CDIFF: No Influenza Vaccine: 07/20/17 Surgical History Surgical History: appendectomy, CABG, hernia repair-umbilical, TONSILS Psychosocial History Who do you live with Family Services at Home None What is your primary language Slovak Tobacco Use: Quit >30 days ago Family History Family History, If Any: FATHER FH: heart disease FH: migraine headache FH: stroke Grandmother FH: heart disease FH: stroke Hx Contributory? No (Mel BLOOD,Jori Guillermo) Review of Systems Review of Systems Constitutional: Reports: no symptoms. EENTM: Reports: no symptoms. Respiratory: Reports: no symptoms. Cardiovascular: Reports: no symptoms. GI: Reports: no symptoms. Genitourinary: Reports: no symptoms. Musculoskeletal: Reports: no symptoms. Skin: Reports: no symptoms. Neurological/Psychological: Reports: no symptoms. Hematologic/Endocrine: Reports: no symptoms. Immunologic/Allergic: Reports: no symptoms. All Other Systems: Reviewed and Negative (Mel BLOOD,Jori Guillermo) Physical Exam Physical Exam General Appearance: well developed/nourished, mild distress Head: atraumatic, normal appearance Eyes: Bilateral: normal appearance, PERRL, EOMI. Ears, Nose, Throat: normal pharynx, normal ENT inspection Neck: normal inspection, supple, full range of motion Respiratory: stridor, wheezing, mild respiratory distress, Cardiovascular: tachycardia, nsr, no acute changes Gastrointestinal: normal bowel sounds, soft, no organomegaly, mild diffuse tenderness to palpation Extremities: left buttock with large hematoma, no laceration/abrasion. no focal bony tenderness or deformity. Neurologic/Psych: no motor/sensory deficits, awake, alert Skin: intact, normal color, warm/dry Core Measures ACS in differential dx? No CVA/TIA Diagnosis No Sepsis Present: No Sepsis Focused Exam Completed? No (Mel BLOOD,Jori Guillermo) Progress Differential Diagnosis: asthma, AMI, bronchitis, CHF, COPD, pneumonia Plan of Care: Orders Procedure Date/time Status Heart Healthy Diet 09/26 L Active LACTIC ACID 09/26 843 Active ED Holding Orders 09/26 802 Active Admit to inpatient 09/26 802 Active Vital Signs 09/26 802 Active Code Status 09/26 802 Active Add-on Test (ER Only) 09/26 08 Active PARTIAL THROMBOPLASTIN TIME 09/26 07 Complete PROTHROMBIN TIME 09/26 701 Complete CREATINE PHOSPHOKINASE 09/26 656 Active MISTAKE 09/26 06 Active BLOOD CULTURE 09/26 0550 Active RAPID VIRAL INFLUENZA A 09/26 544 Complete VIRAL CULTURE 09/26 544 Active ARTERIAL BLOOD GAS (GEN) 01/08 0544 Active BLOOD CULTURE 09/26 543 Active TROPONIN LEVEL 09/26 543 Active LIPASE 09/26 543 Active LACTIC ACID 09/26 543 Active HEPATIC FUNCTION PANEL 09/26 543 Active CBC WITHOUT DIFFERENTIAL 09/26 543 Complete BASIC METABOLIC PANEL 09/26 543 Active AMYLASE 09/26 543 Active EKG 09/26 535 Active Laboratory Tests 09/26/17 0700: pH 7.42, pCO2 43, pO2 92, HCO3 27, ABG O2 Sat (Measured) 95.0 L, P-50 (Temp Corrected) Y, Carboxyhemoglobin 0.1 L, O2 Concentration % 2 LPM, Temperature 102.4 H, O2 Delivery Method N/C, Phlebotomy Draw Site RIGHT RADIAL 09/26/17656: Anion Gap 14, Estimated GFR > 60, BUN/Creatinine Ratio 25.0, Glucose 97, Lactic Acid 1.3, Calcium 8.7, Total Bilirubin 0.8, Direct Bilirubin 0.5 H, AST 90 H, ALT 101 H, Alkaline Phosphatase 153 H, Creatine Kinase Pending, Troponin I 0.02, Total Protein 6.3, Albumin 3.6, Amylase 31, Lipase 140, PT 13.5 H, INR 1.29 H, APTT 36, CBC w Diff NO MAN DIFF REQ, RBC 2.92 L, MCV 82.6, MCH 27.6, RDW 15.0 H, MPV 8.1, Gran % 79.7 H, Lymphocytes % 16.6 L, Monocytes % 3.5, Eosinophils % 0, Basophils % 0.2, Absolute Granulocytes 9.6 H, Absolute Lymphocytes 2.0, Absolute Monocytes 0.4, Absolute Eosinophils 0, Absolute Basophils 0, PUBS MCHC 33.5 09/26/17 0545: Virus Culture Pending Microbiology 09/26 707 BLOOD: Blood Culture - RECD 09/26 656 BLOOD: Blood Culture - RECD 09/26 599 NASOPHARYN: Influenza Virus A & B Rapid Smear - COMP INFLUENZA TYPE A 7:15 AM PATIENT SIGNED OUT TO ME BY DR LEAL, PENDING LABS, ADMISSION. 8:03 AM D/W MORALES FROM CASE MANAGEMENT AND WITH DR CLAYTON. PATIENT WILL MERIT FULL ADMISSION, WILL PLACE ON TELE UNKNOWN IF IT WAS A SYNCOPAL EPISODE. MOD PAGED. D/W SON AND PATIENT AT BEDSIDE. (Mansoor BLOOD,Mar) Diagnostic Imaging: Viewed by Me: Radiology Read, CT Scan. Discussed w/RAD: Radiology Read, CT Scan. Radiology Impression: 09/19/17...HEAD/CERVICAL/MAXILLOFACIAL CT... NO ACUTE DISEASE, 09/20/2017 - EEG... NORMAL IN AWAKE STATE.. FULL REPORT BELOW Patient Name: BEATA DE SANTIAGO Location: [facility] Date of : [birth year] Unit Number: [id number] Sex: F Age: 67 Electroencephalogram Report Electroencephalogram Results Date of service: 09/20/17 Attending MD: Peyman Cid MD Ore Trimmer: Krish EEG Number: [id number] Test Utilizes: 10-20 system , 21 lead 18 channel digital recording Pertinent Hx/Physical/Neuro Findings/Clin Diagnosis: Patient with delirium/confusion. Inpatient Medications: Current Medications Sig/Kwadwo Start time Last Medication Dose Route Stop Time Status Admin Acetaminophen 650 MG Q6P PRN 09/19 0945 AC 09/20 PO 1728 Albuterol Sulfate 2 PUF Q4-6 PRN PRN 09/19 1245 AC INH Albuterol Sulfate 3 ML Q4H PRN 09/19 0900 AC 09/19 INH 0909 Atorvastatin Calcium 40 MG 1700 09/19 0915 AC 09/20 PO 1727 Budesonide/ 2 PUF BID 09/20 1008 AC 09/20 Formoterol Fumarate INH 1239 Cholecalciferol 1,000 IU DAILY 09/20 1000 CAN PO Cholecalciferol 2,000 IU DAILY 09/20 1000 AC 09/20 PO 1238 Cholecalciferol 1 ,000 IU DAILY 09/19 1917 DC 09/20 PO 0932 Citalopram 40 MG DAILY 09/19 1237 AC 09/20 Hydrobromide PO 0932 Clopidogrel Bisulfate 75 MG DAILY 09/19 1235 AC 09/20 PO 0932 Cyanocobalamin 250 MCG DAILY 09/20 1000 CAN PO Cyanocobalamin 1,000 MCG Q168 09/20 1000 AC 09/20 IM 1239 Cyanocobalamin 1, 000 MCG DAILY 09/19 1916 DC 09/20 PO 0932 Enoxaparin Sodium 40 MG DAILY 1003 AC 09/20 SC 0933 Insulin Aspart 0 TIDAC 09/19 1700 AC 09/20 SC 1238 Non-Formulary 0 SEE ADMIN CRITERIA 09/19 1245 DC Medication ANY Trazodone HCl 25 MG AT BEDTIME PRN 09/19 193 AC 09/19 PO 2053 Interpretation: The recording demonstrates the expected frequency gradient during wakefulness, with fatser frequencies being up front and slower in the posterior regions. There is overall good symmetry in amplitude and frequency between the two hemispheres. The prevailing background is composed of fast beta in the frontal regions and a posterior dominant rhythm of 8-9 hertz in the posterior regions. Otherwise, there are no paroxysmal features as sharps or spikes. No focal slowing. Impression: Normal EEG in the awake state. DICTATED BY: Kraig Pope MD DATE/TIME DICTATED:09/20/171955 MARKET ANALYSIS DIRECTOR:JOHANNA DATE/TIME TRANSCRIBED:09/20/171955 REPORT NUMBER:[id number] CONFIDENTIAL, DO NOT COPY WITHOUT APPROPRIATE AUTHORIZATION. <Electronically signed by Kraig Pope MD> 09/20/172000 , head ct... no acute injury from prior PATIENT: BEATA DE SANTIAGO PRESENT AGE: 67 PATIENT ACCOUNT NO: [id number] : 46 LOCATION: [facility] ORDERING PHYSICIAN: Jori Lael MD SERVICE DATE: 09/26/17 EXAM TYPE: CAT - CT HEAD WO IV CONTRAST EXAMINATION: CT HEAD WITHOUT CONTRAST CLINICAL INFORMATION: Mental status change. Near syncope. COMPARISON: 09/19/2017 PET/CT. MRI from 09/21/2017. TECHNIQUE: Contiguous axial imaging was performed from the skull base to vertex without intravenous contrast. DLP: 617 mGy-cm. FINDINGS: There is no evidence of acute intracranial hemorrhage or territorial infarction. No abnormal mass effect or midline shift is seen. Lee to white matter differentiation is well preserved. No extra-axial fluid collections are identified. No hydrocephalus. Proportional prominence of the ventricles and sulcal spaces is consistent with mild volume loss. Patchy periventricular and deep white matter hypoattenuation is consistent with mild small vessel ischemic changes. The osseous structures and soft tissues are normal. Mild opacification of the maxillary sinuses with air-fluid levels. Mildly opacified ethmoid air cells. The mastoid air cells and visualized portions of the paranasal sinuses are otherwise well aerated. IMPRESSION: No acute intracranial pathology. No change from recent prior. Mild volume loss with small vessel ischemic changes. DICTATED BY: Richy Silva MD DATE/TIME DICTATED:09/26/17630 MARKET ANALYSIS DIRECTOR:AYAZ DATE/TIME TRANSCRIBED:630 CONFIDENTIAL, DO NOT COPY WITHOUT APPROPRIATE AUTHORIZATION. < Electronically signed in Other Vendor System> SIGNED BY: Shira BLOOD, Richy 09/26/17 0636, abd/pelvic ct... possible hematoma noted PATIENT: BEATA DE SANTIAGO PRESENT AGE: 67 PATIENT ACCOUNT NO: [id number] : 46 LOCATION: [facility] ORDERING PHYSICIAN: Jori Leal MD SERVICE DATE: 09/26/17 EXAM TYPE: CAT - CT ABD & PELVIS W/O IV CONTRAS EXAMINATION: CT ABDOMEN AND PELVIS WITHOUT CONTRAST CLINICAL INFORMATION: Abdominal pain. Diarrhea. COMPARISON: CT 09/19/2017. TECHNIQUE: Multidetector volumetric imaging was performed from the superior aspect of the liver through the pubic symphysis. Sagittal and coronal reformatted images were obtained on the technologist's workstation. DLP: 529 mGy-cm FINDINGS: LUNG BASES: Centrilobular emphysema noted. 0.2 cm subpleural left lower lobe nodule, series 3 image 4. LIVER, GALLBLADDER, AND BILIARY TREE: The liver is normal in size, shape, and attenuation. No focal hepatic lesion or biliary ductal dilatation is present. 0.3 cm stone layering in the gallbladder lumen. No gallbladder wall thickening or pericholecystic fluid. PANCREAS: Unremarkable. SPLEEN: Unremarkable. ADRENAL GLANDS: Unremarkable. KIDNEYS AND URETERS: The kidneys are normal in size, shape, and attenuation. No hydronephrosis, hydroureter, or calculi seen. No perinephric stranding. 3.3 cm right upper pole renal cyst. BLADDER: Unremarkable. GASTROINTESTINAL TRACT: The stomach is decompressed with no gross abnormality. The small bowel is normal in caliber without obstruction. There is a normal appendix. Colonic diverticulosis noted without evidence of diverticulitis. There is no colonic wall thickening. There is abnormal stranding within the left periorbital soft tissues with linear extension of increased attenuation extending to the left gluteus medius tamanna muscle and adjacent fat. ABDOMINAL WALL: No hernia. The left gluteal abnormal region measures approximately 9 cm transverse by 3 cm AP. LYMPH NODES: Normal. VASCULAR: Normal caliber aorta. Moderate atherosclerotic calcifications. PELVIC VISCERA: The uterus and adnexa are unremarkable. OSSEOUS STRUCTURES: No acute or suspicious osseous abnormality. Mild degenerative changes in the spine. IMPRESSION: Stranding in the left perianal soft tissues with abnormal opacity in the left gluteal fat extending to the gluteus tamanna muscle. This may represent hematoma. Infectious process not excluded. This finding is new when compared to the CT from 09/19/2017. No bowel wall thickening. Colonic diverticulosis without evidence of diverticulitis. Cholelithiasis. DICTATED BY: Richy Silva MD DATE/TIME DICTATED:09/26/17632 MARKET ANALYSIS DIRECTOR:AYAZ DATE/TIME TRANSCRIBED:09/26/17632 CONFIDENTIAL, DO NOT COPY WITHOUT APPROPRIATE AUTHORIZATION. <Electronically signed in Other Vendor System> SIGNED BY: Richy Silva MD 09/26/17640 CXR Impression: no acute abnormality, no infiltrates, normal size heart, normal mediastinum, PATIENT: BEATA DE SANTIAGO PRESENT AGE: 67 PATIENT ACCOUNT NO: [id number] : 46 LOCATION: [facility] ORDERING PHYSICIAN: Jori Leal MD SERVICE DATE: 09/26/17 EXAM TYPE: RAD - XRY- CHEST XRAY, TWO VIEWS EXAMINATION: XR CHEST CLINICAL INFORMATION: Dyspnea COMPARISON: 09/19/2017 TECHNIQUE: 2 views of the chest were obtained. FINDINGS: Median sternotomy wires appear intact. The lungs are hyperexpanded consistent with known emphysema. Linear left basilar atelectasis noted. No dense consolidation. No pleural effusion or pneumothorax. The cardiomediastinal silhouette is unchanged. There is a calcified aorta. IMPRESSION: Emphysema. Linear left basilar atelectasis. No consolidation. DICTATED BY: Richy Silva MD DATE/TIME DICTATED:09/26/17637 MARKET ANALYSIS DIRECTOR:AYAZ DATE/TIME TRANSCRIBED:09/26/17637 CONFIDENTIAL, DO NOT COPY WITHOUT APPROPRIATE AUTHORIZATION. <Electronically signed in Other Vendor System> SIGNED BY: Richy Silva MD 09/26/17642 Initial ED EKG: RBBB, no change from prior. Hand-Off Endorsed To: Mar Max MD Endorsed Time: 0700 Pending: CT, labs, other, Xray (Jori Leal MD) Departure Departure Disposition: STILL A PATIENT Condition: Stable Referrals: Keanu BLOOD,Florentino Elder (PCP/Family) Departure Forms: Customer Survey General Discharge Information (Jori Leal MD) Departure Time of Disposition: 0758 Clinical Impression Primary Impression: COPD exacerbation Secondary Impressions: Dehydration, Hematoma, Influenza A, Transaminitis Admission Note Spoke With: Ron Clayton MD Documentation of Exam: Documentation of any treatments & extenuating circumstances including Concerns Regarding Discharge (functional status, medication knowledge or non-compliance, living conditions, etc.) that warrant an admission rather than observation: [TRC /NEBX, TAMIFLU, IV ABX, MONITOR H/H, SERIAL EKG/TROPONIN, PHYSICAL THERAPY EVALUATION, POSSIBLE SURGICAL EVALUATION FOR LARGE HEMATOMA LEFT BUTTOCK, MEDICAL DISCHARGE WILL BE HARMFUL. I SUSPECT PATIENT WILL REQUIRE A MULTIPLE DAY HOSPITALIZATION AND MAY REQUIRE SHORT TERM REHAB AFTER THAT] (Mar Max MD) Critical Care Note Critical Care Note Critical Care Time: 30-74 min (Jori Leal MD)
--- NOTE | 2017-09-26 06:36 | CT SCAN REPORT ---
EXAMINATION: CT HEAD WITHOUT CONTRAST CLINICAL INFORMATION: Mental status change. Near syncope. COMPARISON: 09/19/2017 PET/CT. MRI from 09/21/2017. TECHNIQUE: Contiguous axial imaging was performed from the skull base to vertex without intravenous contrast. DLP: 617 mGy-cm. FINDINGS: There is no evidence of acute intracranial hemorrhage or territorial infarction. No abnormal mass effect or midline shift is seen. Lee to white matter differentiation is well preserved. No extra-axial fluid collections are identified. No hydrocephalus. Proportional prominence of the ventricles and sulcal spaces is consistent with mild volume loss. Patchy periventricular and deep white matter hypoattenuation is consistent with mild small vessel ischemic changes. The osseous structures and soft tissues are normal. Mild opacification of the maxillary sinuses with air-fluid levels. Mildly opacified ethmoid air cells. The mastoid air cells and visualized portions of the paranasal sinuses are otherwise well aerated. IMPRESSION: No acute intracranial pathology. No change from recent prior. Mild volume loss with small vessel ischemic changes.
--- NOTE | 2017-09-26 06:41 | CT SCAN REPORT ---
EXAMINATION: CT ABDOMEN AND PELVIS WITHOUT CONTRAST CLINICAL INFORMATION: Abdominal pain. Diarrhea. COMPARISON: CT 09/19/2017. TECHNIQUE: Multidetector volumetric imaging was performed from the superior aspect of the liver through the pubic symphysis. Sagittal and coronal reformatted images were obtained on the technologist's workstation. DLP: 529 mGy-cm FINDINGS: LUNG BASES: Centrilobular emphysema noted. 0.2 cm subpleural left lower lobe nodule, series 3 image 4. LIVER, GALLBLADDER, AND BILIARY TREE: The liver is normal in size, shape, and attenuation. No focal hepatic lesion or biliary ductal dilatation is present. 0.3 cm stone layering in the gallbladder lumen. No gallbladder wall thickening or pericholecystic fluid. PANCREAS: Unremarkable. SPLEEN: Unremarkable. ADRENAL GLANDS: Unremarkable. KIDNEYS AND URETERS: The kidneys are normal in size, shape, and attenuation. No hydronephrosis, hydroureter, or calculi seen. No perinephric stranding. 3.3 cm right upper pole renal cyst. BLADDER: Unremarkable. GASTROINTESTINAL TRACT: The stomach is decompressed with no gross abnormality. The small bowel is normal in caliber without obstruction. There is a normal appendix. Colonic diverticulosis noted without evidence of diverticulitis. There is no colonic wall thickening. There is abnormal stranding within the left periorbital soft tissues with linear extension of increased attenuation extending to the left gluteus medius tamanna muscle and adjacent fat. ABDOMINAL WALL: No hernia. The left gluteal abnormal region measures approximately 9 cm transverse by 3 cm AP. LYMPH NODES: Normal. VASCULAR: Normal caliber aorta. Moderate atherosclerotic calcifications. PELVIC VISCERA: The uterus and adnexa are unremarkable. OSSEOUS STRUCTURES: No acute or suspicious osseous abnormality. Mild degenerative changes in the spine. IMPRESSION: Stranding in the left perianal soft tissues with abnormal opacity in the left gluteal fat extending to the gluteus tamanna muscle. This may represent hematoma. Infectious process not excluded. This finding is new when compared to the CT from 09/19/2017. No bowel wall thickening. Colonic diverticulosis without evidence of diverticulitis. Cholelithiasis.
--- NOTE | 2017-09-26 06:43 | RADIOLOGY REPORT ---
EXAMINATION: XR CHEST CLINICAL INFORMATION: Dyspnea COMPARISON: 09/19/2017 TECHNIQUE: 2 views of the chest were obtained. FINDINGS: Median sternotomy wires appear intact. The lungs are hyperexpanded consistent with known emphysema. Linear left basilar atelectasis noted. No dense consolidation. No pleural effusion or pneumothorax. The cardiomediastinal silhouette is unchanged. There is a calcified aorta. IMPRESSION: Emphysema. Linear left basilar atelectasis. No consolidation.
[2017-09-26 07:38] LABS: ABSOLUTE BASOPHIL COUNT 0 /CUMM (0.0-0.2); ABSOLUTE EOSINOPHIL COUNT 0 /CUMM (0.0-0.7); ABSOLUTE MONOCYTE COUNT 0.4 /CUMM (0.10-0.60); BASOPHIL % 0.2 % (0.0-2.0); EOSINOPHIL % 0 % (0-5)
[2017-09-26 07:49] LABS: ABSOLUTE GRANULOCYTE CT 9.6 /CUMM (1.4-6.5); GRANULOCYTE % 79.7 % (42.2-75.2); MEAN CORPUSCULAR HGB 27.6 PG (27.0-31.0); MEAN CORPUSCULAR HGB CONC 33.5 G/DL (33.0-37.0); MEAN CORPUSCULAR VOLUME 82.6 FL (81.0-99.0); MEAN PLATELET VOLUME 8.1 FL (7.4-10.4); PLATELET COUNT 387 /CUMM (130-400); PT 13.5 SEC (9.4-12.5); PTT 36 SEC (25-37); RED BLOOD CELL CT 2.92 /CUMM (4.20-5.40)
[2017-09-26 07:51] LABS: HEMATOCRIT 24.2 % (37-47)
[2017-09-26] MEDS ORDERED: ZOLPIDEM TARTRA10 M1 PO (07:55)
--- NOTE | 2017-09-26 08:16 | History & Physical ---
Ga BLOOD,Rohittcandrei 09/26/17 0815: General Information and HPI MD Statement: I have seen and personally examined BEATA DE SANTIAGO and documented this H&P. The patient is a 67 year old F who presented with a patient stated chief complaint of [fall]. Source of Information: patient, family, old records Exam Limitations: poor historian History of Present Illness: This is a 67 yo female with PMH of insomnia, CABG, COPD, PE, Multiple TIA, htn, anxiety, depressio and DM, who comes in for CC fall. She was previously admitted to from 09/19/17-09/21/17 for similar complaint of fall and acute deliriu. She was admitted to [facility] to rule out cardiac vs neuro cause of syncope and after evaluation by neuro was given ds of transient encephalopathy likely secondary to medication. After leaving pt states that she felt well initially but by 09/23/2017 she had malaise, cough and another fall. Per son he noted that pt was mumbling incoherently to herself and seemed confused and then sustained a fall with trauma to buttock. He called ambulance and per him "she checked out fine" and pt refused to go to hospital. Over the next few days he states that her PO intake seemed to decline, she seemed more incontinent, had nausea, chills, malaise, vomiting x1, and several episodes of loose stools (2-3) per day. She also complained of worsening SOB and pain in her chest after cough. This AM she sustained two falls, neither with trauma to head, and son called ambulance after second fall. First fall was unwitnessed and pt fell forward on all fours and the second was witnessed by son and he was able to catch her before she lost all balance. He states that she seems confused when she falls. No facial droop, weakness, loss of bladder or bowel noted. She usually ambulates w/o assistance but does have a cane at home. These recent episodes of fall occur when she is not using cane. In previous admission her Ativan and Zolpidem were stopped. Pt states that she still occasionally takes Zolpidem. She was recommended to start Trazadone and Melatonin but claims that she has started neither. Today when ambulance arrived they found pt satting 88% on RA, febrile and confused. Allergies/Medications Allergies: Coded Allergies: Penicillins (ITCHING 09/26/17) cat dander (SWELLING ALL OVER PER PT 09/14/17) prochlorperazine (From COMPAZINE) (SWELLING ALL OVER PER PT 09/14/17) Past History Travel History Traveled to [place] past 21 day No Medical History Neurological: TIA EENT: NONE Cardiovascular: hypertension, CABG Respiratory: COPD, pulmonary embolism Gastrointestinal: NONE Hepatic: NONE Renal: NONE Musculoskeletal: NONE Psychiatric: anxiety, depression, insomnia Endocrine: diabetes Cancer(s): NONE HEADLINE WRITER/Reproductive: NONE History of MRSA: No History of VRE: No History of CDIFF: No Influenza Vaccine: 07/20/17 Surgical History Surgical History: appendectomy, CABG, hernia repair-umbilical, TONSILS Past Family/Social History Family History Relations & Conditions if any FATHER FH: heart disease FH: migraine headache FH: stroke Grandmother FH: heart disease FH: stroke Psychosocial History Who Do You Live With? son Services at Home: None Primary Language: Brazilian Living Will? no Power of Clay Worker/HCP? no Functional Ability ADLs Independent: dressing, eating, toileting, bathing. Ambulation: independent IADLs Independent: shopping, housework, finances, food prep, telephone, transportation , medication admin. Review of Systems Review of Systems Constitutional: Reports: see HPI. Exam & Diagnostic Data Last 24 Hrs of Vital Signs/I&O Vital Signs Date Time Temp Pulse Resp B/P B/P Pulse O2 O2 Flow FiO2 Mean Ox Delivery Rate 09/26 1218 98.0 82 20 109/78 98 Nasal 2.0L Cannula 09/26 1041 98.2 100 20 138/78 09/26 0932 98.2 100 20 118/58 97 Nasal 2.0L Cannula 09/26 0755 101.1 09/26 0724 102.4 09/26 0644 102.4 111 20 98/56 95 Nasal 2.0L Cannula 09/26 0601 100 Aerosol 8L Mask 09/26 0535 102.4 111 26 128/61 100 Aerosol 8L Mask Intake & Output 09/26 1600 09/26 0800 09/26 0000 Intake Total 1000 0 Output Total 500 Balance 500 0 Intake, IV 1000 Intake, Oral 0 Output, Urine 500 Patient 79.832 kg Weight Weight Reported by Patient Measurement Method Physical Exam General Appearance Alert, Oriented X3, Cooperative, No Acute Distress Skin Pt has several contusions in body. largest one in l. buttock extending to right side. firm and tender to palpation. Deep purple in color. R. flank has fading bruise. Sub-mental region with mottling. bilat arms with scattered small bruises. Under l. breast fading bruise. Skin Temp/Moisture Exam: Cool/Diaphoretic Sepsis Skin Exam (color): Normal for Ethnicity, Pale HEENT Atraumatic, PERRLA, EOMI, mucous membranes dry. Mottling nad bruising in sub-mental area Neck Supple, No LAD Cardiovascular No Murmurs, tachycardic, median sternotomy scar Lungs diffusely wheezy. No egophany. Slightly diminished airmovement in r. side Abdomen Normal Bowel Sounds, Soft, No Tenderness, No Masses Neurological Normal Speech, Strength at 5/5 X4 Ext, Sensation Intact, Cranial Nerves 3-12 NL Last 24 Hrs of Labs/Marlon: Laboratory Tests 09/26/17 0933: Urine Color YEL, Urine Clarity CLEAR, Urine pH 6.0, Ur Specific [place] 1.010, Urine Protein NEG, Urine Ketones NEG, Urine Nitrite NEG, Urine Bilirubin NEG, Urine Urobilinogen 1.0, Ur Leukocyte Esterase NEG, Ur Microscopic EXAM NOT REQUIRED, Urine Hemoglobin NEG, Urine Glucose NEG 09/26/17 0700: pH 7.42, pCO2 43, pO2 92, HCO3 27, ABG O2 Sat (Measured) 95.0 L, P-50 (Temp Corrected) Y, Carboxyhemoglobin 0.1 L, O2 Concentration % 2 LPM, Temperature 102.4 H, O2 Delivery Method N/C, Phlebotomy Draw Site RIGHT RADIAL 09/26/17 0657: Anion Gap 14, Estimated GFR > 60, BUN/Creatinine Ratio 25.0, Glucose 97, Lactic Acid 1.3, Calcium 8.7, Total Bilirubin 0.8, Direct Bilirubin 0.5 H, AST 90 H, ALT 101 H, Alkaline Phosphatase 153 H, Creatine Kinase 402 H, Troponin I 0.02 , Total Protein 6.3, Albumin 3.6, Amylase 31, Lipase 140, Folate > 20.0 H, PT 13.5 H, INR 1.29 H, APTT 36, CBC w Diff NO MAN DIFF REQ, RBC 2.92 L, MCV 82.6 , MCH 27.6, RDW 15.0 H, MPV 8.1, Gran % 79.7 H, Lymphocytes % 16.6 L, Monocytes % 3.5, Eosinophils % 0, Basophils % 0.2, Absolute Granulocytes 9.6 H, Absolute Lymphocytes 2.0, Absolute Monocytes 0.4, Absolute Eosinophils 0, Absolute Basophils 0, PUBS MCHC 33.5 09/26/17 0545: Virus Culture Pending Microbiology 09/26 932 URINE ROUT: Urine Culture - RECD 09/26 07 BLOOD: Blood Culture - RECD 09/26 06 BLOOD: Blood Culture - RECD 09/26 06 NASOPHARYN: Influenza Virus A & B Rapid Smear - COMP INFLUENZA TYPE A Assessment/Plan Assessment: ASSESSMENT: This is a 67 yo female with PMH of insomnia, CAD s/p CABG, COPD, PE, TIA, HTN, DM, anxiety and depression who comes in [facility] for all and is found to be febrile with poor O2 sats by EMS. In ED found to be desatting, with anemia and +influenza swab. She meets criteria for sepsis secondary to influenza with SOFA score of 1. Pt admitted to telemetry floor for further work up. PLAN: 1. Sepsis 2/2 Influenza: She does meet criteria for sepsis as she has +flu swab and is febrile, with tachycardia, tachypnea and WBC >12. No bands. CXR negative for PNA, however, it does show linear atelactasis. First lactic negative * Ostletamivir 75mg PO BID 5 days * Droplet pre-cautions * monitor vitals * Monitor I/O * UA * UC * Follow up lactic acid 2. Anemia: HB is 8.1 today and was 10.6 on 09/20/2017. Pt had low B12 lvl (207) noted on previous admission. She has large hematoma on buttock and CT ABD shows l.frieda-anal stranding likely 2/2 hematoma. Likely this is a mix of Acute blood loss and b12 deficiency. Note that pt is on Plavix for TIA, she states that she is not taking ASA. However, unsure if Plavix alone would cause such a significant amount of bruising... * check TFT * Type and cross * No pharmacologic DVT ppx * Con't ALPS * Con't Plavix * IM B12 for 4 more doses (note one dose given in previous admission). Kindly monitor site of administration for developing hematoma * Follow up CBC at 1900 * Follow up Folate level * Consider iron studies to evaluate for any other cause of anemia. * Guiac stool 3. Fall/Confusion: Pt seems to be having increasing incidence of fall. Per son it sounds like she is confused and then falls. It does not seem to be neuromuscular weakness leading to falls. DDX includes: transient encephalopathy, subacute combined degeneration, delirium due to medical illness, or dementia. MRI in previous admission stated that it could not rule out de-myelinating disease so would also keep that in differential. * PT eval * Continue to keep pt off ativan and Zolpidem * Got one bolus of NS in ED. Con't one more bag of IVF at 75. * Pt is clearly unable to manage her meds at home by herself. Case managment for home support? * Trop EKG at 1300 and 1900 * Utox * Avoid NSAID for bleeding risk 4. COPD: Got 125 of Solumedrol by EMS. Sounds wheezy in all lung lewis. Was desatting to 88% on RA. * TRC * O2 for sats > 92% * Re-eval in AM for con't solumedrol * Azithromycin 250 for 3 days * Got one dose of Cef/Azithro in ED for CAP. Will hold off on abx for trt of PNA at this time. 5. Transamanitis: slightly elevated LFT in this admission. Previously nml. DDX: Statin induce, 2/2 to influenza, Tylenol (pt poor at managing meds). Bili elevation might be due to multiple bruising but she has AST/ALT and ALKP elevation as well. * utox * HOLD statin * Repeat LFT in AM * Con't Tylenol for fever 6. Hypokalemia: K 3.2. * Repleted * Con't monitor 7. DM: Last A1c in Sep 2017 at 7.3. * Diabetic diet * RISS * FS * Holding home meds of Glipizide and Metformin. ?? If pt needs to be on Glipizide on out pt basis as it could cause hypoglycemia and fall. Additionally, pt on beta-amaya. 8. New Pulm nodule: seen on CT in last admisison. Follow up out pt. DNR/DNI Diabetic diet As Ranked By This Provider Problem List: 1. Transaminitis 2. Hematoma 3. COPD exacerbation 4. Influenza A Core Measures/Misc (06/05) Acute Coronary Syndrome ACS Diagnosis: No Congestive Heart Failure Congestive Heart Failure Diagnosis No Cerebrovascular Accident CVA/TIA Diagnosis: No VTE (View Protocol) VTE Risk Factors Acute Medical Illness No Mechanical VTE Prophylaxis d/t N/A MechProphylax Ordered No VTE Pharm Prophylaxis d/t Bleeding (Active) Sepsis (View protocol) Sepsis Present: Yes Peyman Cid 09/26/17 1718: General Information and HPI Allergies/Medications Home Med list Albuterol Sulfate (Ventolin Hfa) 90 MCG HFA.AER.AD 2 PUF INH Q4-6 PRN PRN COPD (Reported) Atorvastatin Calcium 40 MG TABLET 1 TAB PO DAILY CHOLESTEROL (Reported) Azithromycin 250 MG TABLET 1 TAB PO DAILY copd Cholecalciferol (Vitamin D3) (Vitamin D) 2,000 UNIT CAPSULE 1 CAP PO DAILY LOW VIT D Citalopram Hydrobromide (Citalopram HBr) 40 MG TABLET 1 TAB PO DAILY MENTAL HEALTH (Reported) Clopidogrel Bisulfate (Clopidogrel) 75 MG TABLET 1 TAB PO DAILY BLOOD THINNER (Reported) Cyanocobalamin (Vitamin B-12) 1,000 MCG TABLET 1 TAB PO DAILY LOW B12 Cyanocobalamin (Vitamin B-12) (Cyanocobalamin Injection) 1,000 MCG/ML VIAL 1, 000 MCG IM SEE ADMIN CRITERIA b12 deficiency once weekly for 4 weeks. then give monthly once f/u pcp Fluticasone/Vilanterol (Breo Ellipta 200-25 Mcg INH) 200 MCG-25 MCG/DOSE BLST.W.DEV 1 PUFF INH DAILY COPD (Reported) Gatifloxacin (Zymaxid) 0.5 % DROPS 1 GTT OD 4 TIMES/DAY RIGHT EYE (Reported) Glipizide 5 MG TABLET 1 TAB PO BID DM (Reported) Melatonin 3 MG TABLET 1 TAB PO QPM PRN SLEEP Metformin HCl 500 MG TABLET 1 TAB PO TID DM (Reported) Metoprolol Tartrate 25 MG TABLET 1 TAB PO BID HEART/BP (Reported) Nepafenac (Ilevro) 0.3 % DROPS.SUSP 1 DROP OD DAILY RIGHT EYE (Reported) Oseltamivir Phosphate (Tamiflu) 75 MG CAPSULE 75 MG PO BID flu Polyethylene Glycol 3350 (Miralax) 17 GRAM/DOSE POWDER 17 GM PO DAILY PRN constipation Prednisolone Acetate 1 % DROPS.SUSP 1 GTT OD 4 TIMES/DAY RIGHT EYE (Reported) Prednisone 10 MG TABLET 1 TAB PO SI copd take 4 tabs for 2 days take 3 tabs for 2 days\\ take 2 tabs for 2days take 1 tab for 2days Pregabalin (Lyrica) 50 MG CAPSULE 1 CAP PO DAILY NERVE PAIN (Reported) Sennosides/Docusate Sodium (Senna Plus Tablet) 8.6 MG-50 MG TABLET 1 TAB PO BID PRN constipated Trazodone HCl 50 MG TABLET 1 TAB PO QPM PRN SLEEP Attending MD Review Statement Attending Statement Attending MD Statement: examined this patient, discuss w/resident/PA/HOT AIR FURNACE INSTALLER AND REPAIRER, agreed w/resident/PA/HOT AIR FURNACE INSTALLER AND REPAIRER, reviewed EMR data (avail), discussed with nursing Attending Assessment/Plan: pt seen and examined at bedside in ER 67 yr old female who was recently dced from [place] brought back with falls at home. pt in ER found to have fever of 102.4 and wbc of 12k, Influenza swab positive for type A influenza. Sepsis secondary to influenza.- will start on tamiflu, iv fluids, monitor closely for deterioration. Hematoma in buttock area secondary to fall- monitor H/h closely and transfuse as needed. Will hold off on dvt proph with chemical methods. will put her on ALPS, avoid NSAIDS. COPD exacerbation- will cont on steroids anbd will give zithromax for 3 days. B12 def- cont on im shots for b12. will get folic acid level. d/w pt the care plan.
[2017-09-26 15:48] VITALS: BP 114/60
--- NOTE | 2017-09-26 17:17 | Admission Certification ---
Admission Certification Certification Statement - As attending physician, I certify that at the time of - admission, based on clinical presentation, severity of - symptoms, need for further diagnostic testing and - therapeutic interventions, and risk of adverse outcomes - without in-hospital treatment, in my clinical assessment, - this patient requires an acute hospital stay for a minimum - of two nights or longer. I have also considered psychsocial - factors such as support system, advanced age, financial - issues, cognitive issues, and failed out-patient treatments, - past re-admission history, safety of patient, and lack of - compliance as applicable. Specific rationale supporting this admission is: sepsis secondary to influenza, hematoma buttocks due to fall,
[2017-09-26 20:53] LABS: ABSOLUTE BASOPHIL COUNT 0 /CUMM (0.0-0.2); ABSOLUTE EOSINOPHIL COUNT 0 /CUMM (0.0-0.7); ABSOLUTE GRANULOCYTE CT 9.9 /CUMM (1.4-6.5); ABSOLUTE LYMPH COUNT 1.4 /CUMM (1.2-3.4); ABSOLUTE MONOCYTE COUNT 0.8 /CUMM (0.10-0.60); BASOPHIL % 0.2 % (0.0-2.0); EOSINOPHIL % 0 % (0-5); GRANULOCYTE % 81.6 % (42.2-75.2); HEMATOCRIT 23.2 % (37-47); MEAN CORPUSCULAR HGB 28.1 PG (27.0-31.0); MEAN CORPUSCULAR HGB CONC 33.6 G/DL (33.0-37.0); MEAN CORPUSCULAR VOLUME 83.8 FL (81.0-99.0); MEAN PLATELET VOLUME 8.2 FL (7.4-10.4); PLATELET COUNT 402 /CUMM (130-400); RBC DISTRIBUTION WIDTH 15.4 % (11.5-14.5); RED BLOOD CELL CT 2.77 /CUMM (4.20-5.40); WHITE BLOOD CELL COUNT 12.2 /CUMM (4.8-10.8)
[2017-09-26 22:05] VITALS: BP 120/60
[2017-09-27 06:15] VITALS: BP 116/72
[2017-09-27 07:51] LABS: ABSOLUTE BASOPHIL COUNT 0 /CUMM (0.0-0.2); ABSOLUTE EOSINOPHIL COUNT 0 /CUMM (0.0-0.7); ABSOLUTE GRANULOCYTE CT 8.1 /CUMM (1.4-6.5); ABSOLUTE LYMPH COUNT 2.3 /CUMM (1.2-3.4); ABSOLUTE MONOCYTE COUNT 0.7 /CUMM (0.10-0.60); BASOPHIL % 0.3 % (0.0-2.0); EOSINOPHIL % 0 % (0-5); GRANULOCYTE % 72.8 % (42.2-75.2); HEMATOCRIT 22.6 % (37-47); MEAN CORPUSCULAR HGB 27.7 PG (27.0-31.0); MEAN CORPUSCULAR HGB CONC 33.2 G/DL (33.0-37.0); MEAN CORPUSCULAR VOLUME 83.2 FL (81.0-99.0); MEAN PLATELET VOLUME 8.1 FL (7.4-10.4); PLATELET COUNT 410 /CUMM (130-400); RED BLOOD CELL CT 2.72 /CUMM (4.20-5.40); WHITE BLOOD CELL COUNT 11.1 /CUMM (4.8-10.8)
--- NOTE | 2017-09-27 09:07 | PN- Housestaff ---
Subjective Follow-up For: sepsis secondary to flu anemia fall Subjective: patient seen and examined. patient is upset and states that she believes she is "like this because of a sitter that was sick and coughing when she was with me the whole time". she continues to complain of congestion in her ears and nasal sinuses. continues with cough and wheezing. complains of constipation. Review of Systems Constitutional: Reports: malaise, weakness. EENTM: Reports: nasal congestion. Respiratory: Reports: cough, short of breath, wheezing. Gastrointestinal: Reports: constipation. Objective Last 24 Hrs of Vital Signs/I&O Vital Signs Date Time Temp Pulse Resp B/P B/P Pulse O2 O2 Flow FiO2 Mean Ox Delivery Rate 09/27 2214 98.4 82 20 110/70 95 09/27 2202 94 09/27 2054 96 Room Air 09/27 1600 Room Air 09/27 1448 97.8 78 20 100/60 94 Room Air 09/27 0921 73 116/72 09/27 0800 94 Nasal 1.0L Cannula 09/27 0615 97.9 73 18 116/72 96 Nasal 2.0L Cannula 09/27 0000 Nasal 1.0L Cannula Intake & Output 09/27 1600 09/27 0800 09/27 0000 Intake Total 494 084 1220 Output Total Balance 397 440 5530 Intake, IV 10 600 Intake, Oral 550 100 400 Number 0 Bowel Movements Patient 176 lb Weight Weight Reported by Patient Measurement Method Physical Exam General Appearance: Alert, Oriented X3, Cooperative, No Acute Distress Skin: No Rashes, No Breakdown Skin Temp/Moisture Exam: Warm/Dry HEENT: Atraumatic, PERRLA Cardiovascular: Normal S1, Normal S2, No Murmurs Lungs: wheezing throughout Extremities: No Clubbing, No Cyanosis, No Edema Vascular: Normal Pulses, Pulses Symmetrical Current Medications: Current Medications Sig/Kwadwo Start time Last Medication Dose Route Stop Time Status Admin Acetaminophen 650 MG Q4P PRN 09/27 1100 AC PO Acetaminophen 1,000 MG Q6P PRN 09/26 0845 AC IV Albuterol Sulfate 3 ML Q4P PRN 09/27 1800 AC INH Atorvastatin Calcium 40 MG 1700 09/27 1700 AC 09/27 PO 1707 Azithromycin 250 MG DAILY 09/27 1000 AC 09/27 PO 09/29 1001 0921 Budesonide/ 2 PUF BID 09/27 2200 AC 09/27 Formoterol Fumarate INH 2201 Cholecalciferol 2,000 IU DAILY 09/27 1000 AC 09/27 PO 0921 Cholecalciferol 1,000 IU DAILY 09/26 1000 DC 09/26 PO 1041 Citalopram 40 MG DAILY 09/26 1000 AC 09/27 Hydrobromide PO 0921 Clopidogrel Bisulfate 75 MG DAILY 09/26 1030 AC 09/27 PO 0921 Cyanocobalamin 1,000 MCG DAILY 09/26 1030 AC 09/27 IM 09/29 1001 1041 Insulin Aspart 0 TIDAC 09/26 1200 AC 09/27 SC 1708 Melatonin 3 MG QPM PRN 09/26 0845 AC PO Methylprednisolone 60 MG ONCE ONE 09/27 1000 CAN IV 09/27 1001 Methylprednisolone 40 MG Q12 09/27 1000 AC 09/27 IV 2202 Metoprolol Tartrate 25 MG BID 09/26 1000 AC 09/27 PO 2202 Morphine Sulfate 2 MG Q4P PRN 09/27 1058 AC 09/27 IV 2208 Morphine Sulfate 2 MG Q4 09/26 1000 DC 09/27 IV 1041 Oseltamivir Phosphate 75 MG BID 09/26 2200 AC 09/27 PO 09/30 2159 2202 Polyethylene Glycol 17 GM DAILY 09/27 1057 AC 09/27 PO 1223 Senna/Docusate Sodium 1 TAB BID 09/27 1056 AC 09/27 PO 2202 Last 24 Hrs of Lab/Marlon Results Last 24 Hrs of Labs/Mics: Laboratory Tests 09/27/17 0608: Anion Gap 11, Estimated GFR > 60, BUN/Creatinine Ratio 28.3 H, Total Bilirubin 0.6, Direct Bilirubin 0.4, AST 62 H, ALT 82 H, Alkaline Phosphatase 130 H, Total Protein 5.9 L, Albumin 3.3 L, CBC w Diff NO MAN DIFF REQ, RBC 2.72 L, MCV 83.2, MCH 27.7, RDW 15.0 H, MPV 8.1, Gran % 72.8, Lymphocytes % 20.5, Monocytes % 6.4, Eosinophils % 0, Basophils % 0.3, Absolute Granulocytes 8.1 H, Absolute Lymphocytes 2.3, Absolute Monocytes 0.7 H, Absolute Eosinophils 0, Absolute Basophils 0, PUBS MCHC 33.2 Assessment/Plan Assessment: ASSESSMENT: This is a 67 yo female with PMH of insomnia, CAD s/p CABG, COPD, PE, TIA, HTN, DM, anxiety and depression who comes in [facility] for all and is found to be febrile with poor O2 sats by EMS. In ED found to be desatting, with anemia and +influenza swab. She meets criteria for sepsis secondary to influenza. Pt admitted to telemetry floor for further work up. PLAN: 1. Sepsis 2/2 Influenza: On admission, she does meet criteria for sepsis as she has +flu swab and is febrile, with tachycardia, tachypnea and WBC >12. No bands. CXR negative for PNA, however, it does show linear atelactasis. * Ostletamivir 75mg PO BID * Droplet pre-cautions * monitor vitals * Monitor I/O * 2. Anemia: HB is 8.1 today and was 10.6 on 09/20/2017. Pt had low B12 lvl (207) noted on previous admission. She has large hematoma on buttock and CT ABD shows l.frieda-anal stranding likely 2/2 hematoma. Likely this is a mix of Acute blood loss and b12 deficiency. Note that pt is on Plavix for TIA, she states that she is not taking ASA. * hb decreased to 7.8 from 8.1 today. we will transfuse below 7.5. * No pharmacologic DVT ppx * Con't ALPS * Con't Plavix * IM B12 for 3 more doses (one dose given in previous admission). 3. Fall/Confusion: Pt seems to be having increasing incidence of fall. Per son it sounds like she is confused and then falls. It does not seem to be neuromuscular weakness leading to falls. DDX includes: transient encephalopathy, subacute combined degeneration, delirium due to medical illness, or dementia. MRI in previous admission stated that it could not rule out de-myelinating disease so would also keep that in differential. * PT eval * Continue to keep pt off ativan and Zolpidem * Pt is clearly unable to manage her meds at home by herself. Case managment for home support? * Avoid NSAID for bleeding risk 4. COPD: Got 125 of Solumedrol by EMS. Sounds wheezy in all lung lewis. Was desatting to 88% on RA. * TRC * O2 for sats > 92% * continue solumedrol 40mg q12. * Azithromycin 250 for 3 days * Got one dose of Cef/Azithro in ED for CAP. Will hold off on abx for trt of PNA at this time. 5. Transamanitis: slightly elevated LFT in this admission. Previously nml. DDX: Statin induce, 2/2 to influenza, Tylenol (pt poor at managing meds). Bili elevation might be due to multiple bruising but she has AST/ALT and ALKP elevation as well. * utox was not sent * resolving so continue statin * Con't Tylenol for fever 6. Hypokalemia: K 3.2. * Repleted * Con't monitor 7. DM: Last A1c in Sep 2017 at 7.3. * Diabetic diet * RISS * FS * Holding home meds of Glipizide and Metformin. ?? If pt needs to be on Glipizide on out pt basis as it could cause hypoglycemia and fall. Additionally, pt on beta-amaya. 8. New Pulm nodule: seen on CT in last admisison. Follow up out pt. 9. generalized pain from fall tylenol 10. constipation bowel regimen Problem List: 1. Transaminitis 2. Hematoma 3. Influenza A 4. Anemia Pain Ratin Pain Location: generalized since her fall Pain Goal: Pain 4 or less Pain Plan: tylenol for pain Tomorrow's Labs & Rationales: cbc bep
[2017-09-27 14:48] VITALS: BP 100/60
--- NOTE | 2017-09-27 16:03 | PN- Att Addend ---
Attending MD Review Statement Attending Statement Attending MD Statement: examined this patient, discuss w/resident/PA/BEVERAGE STEWARD, agreed w/resident/PA/BEVERAGE STEWARD, reviewed EMR data (avail), discussed w/nursing, discussed w/ case mgmt Attending Assessment/Plan: Laboratory Tests 09/27/17 0608: Anion Gap 11, Estimated GFR > 60, BUN/Creatinine Ratio 28.3 H, Total Bilirubin 0.6, Direct Bilirubin 0.4, AST 62 H, ALT 82 H, Alkaline Phosphatase 130 H, Total Protein 5.9 L, Albumin 3.3 L, CBC w Diff NO MAN DIFF REQ, RBC 2.72 L, MCV 83.2, MCH 27.7, RDW 15.0 H, MPV 8.1, Gran % 72.8, Lymphocytes % 20.5, Monocytes % 6.4, Eosinophils % 0, Basophils % 0.3, Absolute Granulocytes 8.1 H, Absolute Lymphocytes 2.3, Absolute Monocytes 0.7 H, Absolute Eosinophils 0, Absolute Basophils 0, PUBS MCHC 33.2 09/26/17 2232: Troponin I < 0.01 09/26/17 1932: CBC w Diff NO MAN DIFF REQ, RBC 2.77 L, MCV 83.8, MCH 28.1, RDW 15.4 H, MPV 8.2, Gran % 81.6 H, Lymphocytes % 11.3 L, Monocytes % 6.9, Eosinophils % 0, Basophils % 0.2, Absolute Granulocytes 9.9 H, Absolute Lymphocytes 1.4, Absolute Monocytes 0.8 H, Absolute Eosinophils 0, Absolute Basophils 0, PUBS MCHC 33.6 Vital Signs Date Time Temp Pulse Resp B/P B/P Pulse O2 O2 Flow FiO2 Mean Ox Delivery Rate 09/27 1448 97.8 78 20 100/60 94 Room Air 09/27 0921 73 116/72 09/27 0800 94 Nasal 1.0L Cannula 09/27 0615 97.9 73 18 116/72 96 Nasal 2.0L Cannula 09/27 0000 Nasal 1.0L Cannula 09/26 2231 86 120/60 09/26 2230 Nasal 1.0L Cannula 09/26 2205 98.2 87 20 120/60 97 Nasal 2.0L Cannula 09/26 1600 97 Nasal 2.0L Cannula 67 yr old female who was recently dced from [place] brought back with falls at home. pt in ER found to have fever of 102.4 and wbc of 12k, Influenza swab positive for type A influenza. Sepsis secondary to influenza.- will cont on tamiflu, iv fluids, monitor closely for deterioration. Hematoma in buttock area secondary to fall- monitor H/h closely and transfuse as needed. Will hold off on dvt proph with chemical methods. will put her on ALPS, avoid NSAIDS. Hb today at 7.5. COPD exacerbation- will cont on iv steroids and will cont zithromax for 3 days. B12 def- cont on im shots for b12. folic acid level- normal LFTs better, restart statin. Constipation - start on stool softeners. d/w pt the care plan.
[2017-09-27 22:15] VITALS: BP 110/70
[2017-09-28 06:00] VITALS: BP 130/76
[2017-09-28 07:49] LABS: ABSOLUTE BASOPHIL COUNT 0 /CUMM (0.0-0.2); ABSOLUTE EOSINOPHIL COUNT 0 /CUMM (0.0-0.7); ABSOLUTE LYMPH COUNT 1.6 /CUMM (1.2-3.4); ABSOLUTE MONOCYTE COUNT 0.6 /CUMM (0.10-0.60); BASOPHIL % 0.1 % (0.0-2.0); EOSINOPHIL % 0 % (0-5); GRANULOCYTE % 82.1 % (42.2-75.2); HEMATOCRIT 23.5 % (37-47); MEAN CORPUSCULAR HGB 27.5 PG (27.0-31.0); MEAN CORPUSCULAR HGB CONC 33.5 G/DL (33.0-37.0); MEAN CORPUSCULAR VOLUME 82.1 FL (81.0-99.0); MEAN PLATELET VOLUME 8.1 FL (7.4-10.4); PLATELET COUNT 450 /CUMM (130-400); RBC DISTRIBUTION WIDTH 14.8 % (11.5-14.5); RED BLOOD CELL CT 2.86 /CUMM (4.20-5.40); WHITE BLOOD CELL COUNT 12.2 /CUMM (4.8-10.8)
[2017-09-28 08:30] VITALS: BP 130/76
[2017-09-28] MEDS ORDERED: AZITHROMYCIN500 M3 PO ×2 (10:13→10:21)
[2017-09-28] MEDS ORDERED: MIRALAX119 GM PO (10:21)
[2017-09-28] MEDS ORDERED: CYANOCOBAL1000 MCG/2 IM (10:21)
[2017-09-28] MEDS ORDERED: TAMIFLU75 M1 PO (10:21)
[2017-09-28] MEDS ORDERED: SENNA PLUS TAB1 EACH PO (10:21)
[2017-09-28] MEDS ORDERED: PREDNISONE10 M2 PO (10:21)
--- NOTE | 2017-09-28 10:23 | Patient Discharge Instructions ---
Discharge Instructions General Discharge Information You were seen/treated for: flu fall Special Instructions: 1. please follow up with your new PCP Dr. Piedra in 1-2 weeks 2. please follow up with fiber glass worker in 2 weeks for pulmonary nodule. Activity Full Activity/No Limits: Yes Acute Coronary Syndrome Inclusion Criteria At DC or during hospital stay patient has or had the following: ACS DIAGNOSIS No Discharge Core Measures Meds if any: Prescribed or Continued at Discharge Meds if any: NOT Prescribed or Continued at Discharge Congestive Heart Failure Inclusion Criteria At DC or during hospital stay patient has or had the following: CHF DIAGNOSIS No Discharge Core Measures Meds if any: Prescribed or Continued at Discharge Meds if any: NOT Prescribed or Continued at Discharge Cerebrovascular accident Inclusion Criteria At DC or during hospital stay patient has or had the following: CVA/TIA Diagnosis No Discharge Core Measures Meds if any: Prescribed or Continued at Discharge Meds if any: NOT Prescribed or Continued at Discharge Venous thromboembolism Inclusion Criteria VTE Diagnosis No VTE Type NONE VTE Confirmed by (Test) NONE Discharge Core Measures - Per Current guidelines, there needs to be overlap - treatment for the first 5 days of Warfarin therapy. - If discharged on Warfarin prior to 5 days of - overlap therapy, the patient will need to be - assessed for post discharge needs including - *Post discharge parental anticoagulation - *Warfarin and/or parental anticoagulation education - *Follow up date to check INR post discharge At least 5 days overlap therapy as Inpatient No Meds if any: Prescribed or Continued at Discharge Note: Overlap Therapy is Warfarin and Anticoagulant Meds if any: NOT Prescribed or Continued at Discharge
[2017-09-28] MEDS ORDERED: AZITHROMYCIN250 M1 PO (10:41)
--- NOTE | 2017-09-28 11:22 | Discharge Summary ---
Visit Information Visit Dates Admission Date: 09/26/17 Discharge Date: 09/28/17 Hospital Course Course Attending Physician: Jose Roberto BLOOD,Peyman Graves Primary Care Physician: Keanu BLOOD,Florentino Elder Hospital Course: This is a 67 yo female with PMH of insomnia, CABG, COPD, PE, multiple TIA on plavix, htn, anxiety, depression and DM, who comes in for CC fall. She was previously admitted to from 09/19/17-09/21/17 for similar complaint of fall and acute delirium. [facility] out cardiac vs neuro cause of syncope and after evaluation by neuro was given ds of transient encephalopathy likely secondary to medication. After leaving pt states that she felt well initially but by 09/23/2017 she had malaise, cough and another fall. Per son he noted that pt was mumbling incoherently to herself and seemed confused and then sustained a fall with trauma to buttock. He called ambulance and per him "she checked out fine" and pt refused to go to hospital. Over the next few days he states that her PO intake seemed to decline, she seemed more incontinent, had nausea, chills, malaise, vomiting x1, and several episodes of loose stools (2-3) per day. She also complained of worsening SOB and pain in her chest after cough. This AM she sustained two falls, neither with trauma to head, and son called ambulance after second fall. First fall was unwitnessed and pt fell forward on all fours and the second was witnessed by son and he was able to catch her before she lost all balance. He states that she seems confused when she falls. No facial droop, weakness, loss of bladder or bowel noted. She usually ambulates w/o assistance but does have a cane at home. These recent episodes of fall occur when she is not using cane. In previous admission her Ativan and Zolpidem were stopped. Pt states that she still occasionally takes Zolpidem. She was recommended to start Trazadone and Melatonin but claims that she has started neither. Today when ambulance arrived they found pt satting 88% on RA, febrile and confused. itVals in the ED: 102.4, 111, 26,128/61, 100%, 8L PHYSICAL EXAM POSITIVE FOR: Skin multiple scattered ecchymoses s/p fall Lungs diffusely wheezy. No egophany. Slightly diminished airmovement in r. side Neurological Normal Speech, Strength at 5/5 X4 Ext, Sensation Intact, Cranial Nerves 3-12 NL Labs: UA negative 09/26/17 0657: Lactic Acid 1.3, Direct Bilirubin 0.5 H, AST 90 H, ALT 101 H, Alkaline Phosphatase 153 H, Creatine Kinase 402 H, Troponin I 0.02 URINE ROUT: Urine Culture - RECD BLOOD: Blood Culture - RECD BLOOD: Blood Culture - RECD NASOPHARYN: Influenza Virus A & B Rapid Smear - INFLUENZA TYPE A PATIENT WAS ADMITTED TO TELEMETRY FOR EVALUATION AND TREATMENT OF THE FOLLOWING: -SEPSIS 2/2 INFLUENZA -ANEMIA -FALL/CONFUSION -COPD -TRANSAMINITIS -HYPOKALEMIA -DM -PULM NODULE FOUND ON PREVIOUS ADMISSION Plan: 1. Sepsis 2/2 Influenza: On admission, she did meet criteria for sepsis as she has +flu swab and was febrile, with tachycardia, tachypnea and WBC >12. No bands. CXR negative for PNA, however, it did show linear atelactasis. * Ostletamivir 75mg PO BID which was continued outpatient * Droplet pre-cautions * monitor vitals * Monitor I/O 2. Anemia: HB is 8.1 today and was 10.6 on 09/20/2017 at previous admission. Pt had low B12 lvl (207) noted on previous admission. She had large hematoma on buttock and CT ABD shows frieda-anal stranding likely 2/2 hematoma. Likely her anemia was a mix of Acute blood loss and b12 deficiency. Note that pt is on Plavix for TIA, she states that she is not taking ASA. * No pharmacologic DVT ppx as pt on plavix * Con't ALPS * IM B12 weeklly for a month and then monthly 3. Fall/Confusion: Pt seems to be having increasing incidence of fall. Per son it sounds like she is confused and then falls. It does not seem to be neuromuscular weakness leading to falls. DDX includes: transient encephalopathy, subacute combined degeneration, delirium due to medical illness, or dementia. MRI in previous admission stated that it could not rule out de-myelinating disease so we kept that in differential. * PT salas says pt is fine for self care at home, and that her falling issues are medical-we are attributing to b12 deficiency. pt will have visiting nurse and take B12 shots. * Continue to keep pt off ativan and Zolpidem or any other meds that increase delirium and falls. * Avoided NSAID for bleeding risk by fall although patient is to be continued on plavix for previous TIA. 4. COPD: Got 125 of Solumedrol by EMS. Sounded wheezy in all lung lewis. Was desatting to 88% on RA. * TRC and O2 for sats > 92% * Prednisone with taper on discharge * Azithromycin 250 for 5 days total * Got one dose of Cef/Azithro in ED for CAP. We held off on abx for trt of PNA at this time. 5. Transamanitis: slightly elevated LFT in this admission. Previously nml. DDX: Statin induced 2/2 to influenza, Tylenol (pt poor at managing meds). Bili elevation might be due to multiple bruising but she has AST/ALT and ALKP elevation as well. * resolving so we continued statin * Continued Tylenol for fever 6. Hypokalemia: K 3.2. * Repleted 7. DM: Last A1c in Sep 2017 at 7.3. * Diabetic diet * insulin sliding scale and finger sticks. * Holding home meds of Glipizide and Metformin. Stopped Glipizide on out pt basis as it could cause hypoglycemia and fall. Additionally, pt on beta-amaya. 8. New Pulm nodule: seen on CT in last admisison. Patient will follow with PCP. 9. generalized pain from fall tylenol 10. constipation bowel regimen miralax senna colace Allergies: Coded Allergies: Penicillins (ITCHING 09/26/17) cat dander (SWELLING ALL OVER PER PT 09/14/17) prochlorperazine (From COMPAZINE) (SWELLING ALL OVER PER PT 09/14/17) Disposition Summary Disposition Principal Diagnosis: flu Additional Diagnosis: fall Discharge Disposition: home or self care Discharge Instructions General Discharge Information Code Status: Do Not Resucitate/Intubat Patient's Diet: regular Patient's Activity: as tolerated Follow-Up Instructions/Appts: 1. please follow up with your new PCP Dr. Piedra in 1-2 weeks 2. please follow up with refinery operator helper in 2 weeks for pulmonary nodule. Medications at Discharge Discharge Medications: Stop taking the following medications: Zolpidem Tartrate (Zolpidem Tartrate) 10 MG TABLET ORAL Every night as needed as needed for SLEEP Qty = 90 Continue taking these medications: Clopidogrel Bisulfate (Clopidogrel) 75 MG TABLET 1 Tablet ORAL DAILY Qty = 90 Comments: Last Taken: 09/21/17 Time: 0900 Metoprolol Tartrate (Metoprolol Tartrate) 25 MG TABLET 1 Tablet ORAL TWICE DAILY Qty = 180 Comments: Last Taken:09/28/17 Time:8AM Citalopram Hydrobromide (Citalopram HBr) 40 MG TABLET 1 Tablet ORAL DAILY Qty = 90 Comments: Last Taken: 09/28/17 Time: 8AM Pregabalin (Lyrica) 50 MG CAPSULE 1 Capsule ORAL DAILY Qty = 90 Comments: not given in hospital Glipizide (Glipizide) 5 MG TABLET 1 Tablet ORAL TWICE DAILY Qty = 180 Comments: not given in hosopital Albuterol Sulfate (Ventolin Hfa) 90 MCG HFA.AER.AD 2 Puff Inhale through mouth EVERY 4-6 HOURS NEEDED as needed for COPD Qty = 54 Atorvastatin Calcium (Atorvastatin Calcium) 40 MG TABLET 1 Tablet ORAL DAILY Qty = 90 Comments: Last Taken: 09/20/17 Time: 1700 Fluticasone/Vilanterol (Breo Ellipta 200-25 Mcg INH) 200 MCG-25 MCG/DOSE BLST.W.DEV 1 PUFF Inhale through mouth DAILY Qty = 60 Comments: not given in hospital Symicort given at 090 Metformin HCl (Metformin HCl) 500 MG TABLET 1 Tablet ORAL THREE TIMES DAILY Qty = 270 Comments: not given in hospital Prednisolone Acetate (Prednisolone Acetate) 1 % DROPS.SUSP 1 Drop Right Eye 4 TIMES A DAY Qty = 15 Comments: not given in hospital Gatifloxacin (Zymaxid) 0.5 % DROPS 1 Drop Right Eye 4 TIMES A DAY Qty = 3 Comments: not given in hospital Nepafenac (Ilevro) 0.3 % DROPS.SUSP 1 DROP Right Eye DAILY Qty = 2 Comments: not given in hospital Trazodone HCl (Trazodone HCl) 50 MG TABLET 1 Tablet ORAL Every night as needed for SLEEP Qty = 30 Melatonin (Melatonin) 3 MG TABLET 1 Tablet ORAL Every night as needed for SLEEP Qty = 30 Comments: NOT TAKEN Cholecalciferol (Vitamin D3) (Vitamin D) 2,000 UNIT CAPSULE 1 Capsule ORAL DAILY Qty = 30 Comments: Last Taken:09/28/17 Time:8AM Cyanocobalamin (Vitamin B-12) 1,000 MCG TABLET 1 Tablet ORAL DAILY Qty = 30 Comments: GIVEN IM ADMINISTRATION DURING HOSPITAL COURSE Start taking the following new medications: Cyanocobalamin (Vitamin B-12) (Cyanocobalamin Injection) 1,000 MCG/ML VIAL 1,000 Microgram INTRAMUSC SEE INSTRUCTIONS Qty = 6 No Refills Instructions: once weekly for 4 weeks. then give monthly once f/u pcp Comments: Last Taken:09/28/17 Time:8AM Oseltamivir Phosphate (Tamiflu) 75 MG CAPSULE 75 Milligram ORAL TWICE DAILY Qty = 6 No Refills Comments: Last Taken:09/28/17 Time:8AM Polyethylene Glycol 3350 (Miralax) 17 GRAM/DOSE POWDER 17 Gram ORAL DAILY as needed for constipation Qty = 10 No Refills Comments: Last Taken:09/27/17 Time:5PM Sennosides/Docusate Sodium (Senna Plus Tablet) 8.6 MG-50 MG TABLET 1 Tablet ORAL TWICE DAILY as needed for constipated Qty = 10 No Refills Prednisone (Prednisone) 10 MG TABLET 1 Tablet ORAL See Instructions Qty = 20 No Refills Instructions: take 4 tabs for 2 days take 3 tabs for 2 days\\ take 2 tabs for 2days take 1 tab for 2days Comments: Last Taken:09/28/17 Time:8AM Azithromycin (Azithromycin) 250 MG TABLET 1 Tablet ORAL DAILY Qty = 1 No Refills Comments: Last Taken:09/28/17 Time:8AM Copies To: Tadeo BLOOD,Tadeo; Keanu BLOOD,Florentino Elder
--- NOTE | 2017-09-28 11:22 | PN- Housestaff ---
Lynne BLOOD,Mahi 09/28/17 1121: Subjective Follow-up For: flu anemia fall Subjective: patient feeling good and eager to leave Review of Systems Constitutional: Reports: no symptoms. Respiratory: Reports: no symptoms. Objective Last 24 Hrs of Vital Signs/I&O Vital Signs Date Time Temp Pulse Resp B/P B/P Pulse O2 O2 Flow FiO2 Mean Ox Delivery Rate 09/28 0830 Room Air 09/28 0830 73 130/76 09/28 0600 97.9 73 18 130/76 94 Room Air 09/27 2215 98.4 82 20 110/70 95 09/27 2202 94 Intake & Output 09/28 1600 09/28 0800 09/28 0000 Intake Total 110 420 Output Total Balance 110 420 Intake, IV 10 20 Intake, Oral 100 400 Number 1 1 Bowel Movements Physical Exam General Appearance: Alert, Oriented X3, Cooperative, No Acute Distress Lungs: Clear to Auscultation Current Medications: Current Medications Sig/Kwadwo Start time Last Medication Dose Route Stop Time Status Admin Acetaminophen 650 MG Q4P PRN 09/27 1100 DCD PO Acetaminophen 1,000 MG Q6P PRN 09/26 0845 DCD IV Albuterol Sulfate 3 ML Q4P PRN 09/27 1800 DCD INH Atorvastatin Calcium 40 MG 1700 09/27 1700 DCD 09/27 PO 1707 Azithromycin 250 MG DAILY 09/27 1000 DCD 09/28 PO 09/29 1001 0830 Budesonide/ 2 PUF BID 09/27 2200 DCD 09/28 Formoterol Fumarate INH 0831 Cholecalciferol 2,000 IU DAILY 09/27 1000 DCD 09/28 PO 0830 Citalopram 40 MG DAILY 09/26 1000 DCD 09/28 Hydrobromide PO 0832 Clopidogrel Bisulfate 75 MG DAILY 09/26 1030 DCD 09/28 PO 0832 Cyanocobalamin 1,000 MCG DAILY 09/26 1030 DCD 09/28 IM 09/29 1001 0841 Insulin Aspart 0 TIDAC 09/26 1200 DCD 09/28 SC 0830 Melatonin 3 MG QPM PRN 09/26 0845 DCD PO Methylprednisolone 40 MG Q12 09/27 1000 DCD 09/28 IV 0829 Metoprolol Tartrate 25 MG BID 09/26 1000 DCD 09/28 PO 0830 Morphine Sulfate 2 MG Q4P PRN 09/27 1058 DCD 09/27 IV 2208 Oseltamivir Phosphate 75 MG BID 09/26 2199 DCD 09/28 PO 09/30 2159 0831 Polyethylene Glycol 17 GM DAILY 09/27 1057 DCD 09/27 PO 1223 Senna/Docusate Sodium 1 TAB BID 09/27 1056 DCD 09/27 PO 2202 Last 24 Hrs of Lab/Marlon Results Last 24 Hrs of Labs/Mics: Laboratory Tests 09/28/17 0626: Anion Gap 12, Estimated GFR > 60, BUN/Creatinine Ratio 42.0 H, CBC w Diff NO MAN DIFF REQ, RBC 2.86 L, MCV 82.1, MCH 27.5, RDW 14.8 H, MPV 8.1, Gran % 82.1 H, Lymphocytes % 13.3 L, Monocytes % 4.5, Eosinophils % 0, Basophils % 0.1, Absolute Granulocytes 10.0 H, Absolute Lymphocytes 1.6, Absolute Monocytes 0.6, Absolute Eosinophils 0, Absolute Basophils 0, PUBS MCHC 33.5 Assessment/Plan Assessment: ASSESSMENT: This is a 67 yo female with PMH of insomnia, CAD s/p CABG, COPD, PE, TIA, HTN, DM, anxiety and depression who comes in [facility] for all and is found to be febrile with poor O2 sats by EMS. In ED found to be desatting, with anemia and +influenza swab. She meets criteria for sepsis secondary to influenza. Pt admitted to telemetry floor for further work up. PLAN: 1. Sepsis 2/2 Influenza: On admission, she does meet criteria for sepsis as she has +flu swab and is febrile, with tachycardia, tachypnea and WBC >12. No bands. CXR negative for PNA, however, it does show linear atelactasis. * Ostletamivir 75mg PO BID to be prescribed outpatient * Droplet pre-cautions * monitor vitals * Monitor I/O 2. Anemia: HB is 8.1 today and was 10.6 on 09/20/2017. Pt had low B12 lvl (207) noted on previous admission. She has large hematoma on buttock and CT ABD shows l.frieda-anal stranding likely 2/2 hematoma. Likely this is a mix of Acute blood loss and b12 deficiency. Note that pt is on Plavix for TIA, she states that she is not taking ASA. * hb still low but stable * No pharmacologic DVT ppx * Con't ALPS * Con't Plavix * IM B12 weeklly for a month and then monthly 3. Fall/Confusion: Pt seems to be having increasing incidence of fall. Per son it sounds like she is confused and then falls. It does not seem to be neuromuscular weakness leading to falls. DDX includes: transient encephalopathy, subacute combined degeneration, delirium due to medical illness, or dementia. MRI in previous admission stated that it could not rule out de-myelinating disease so would also keep that in differential. * PT salas says pt is fine for self care at home, and that her falling issues are medical-we are attributing to b12 deficiency. pt will have visiting nurse. * Continue to keep pt off ativan and Zolpidem * Avoid NSAID for bleeding risk 4. COPD: Got 125 of Solumedrol by EMS. Sounds wheezy in all lung lewis. Was desatting to 88% on RA. * TRC * O2 for sats > 92% * by mouth steroids and taper * Azithromycin 250 for today and one more day outpatient * Got one dose of Cef/Azithro in ED for CAP. Will hold off on abx for trt of PNA at this time. 5. Transamanitis: slightly elevated LFT in this admission. Previously nml. DDX: Statin induce, 2/2 to influenza, Tylenol (pt poor at managing meds). Bili elevation might be due to multiple bruising but she has AST/ALT and ALKP elevation as well. * utox was not sent * resolving so continue statin * Con't Tylenol for fever 6. Hypokalemia: K 3.2. * Repleted * Con't monitor 7. DM: Last A1c in Sep 2017 at 7.3. * Diabetic diet * RISS * FS * Holding home meds of Glipizide and Metformin. ?? If pt needs to be on Glipizide on out pt basis as it could cause hypoglycemia and fall. Additionally, pt on beta-amaya. 8. New Pulm nodule: seen on CT in last admisison. Follow up out pt. giving patient referral for new pcp as patient isnt happy with current one. 9. generalized pain from fall tylenol 10. constipation bowel regimen Problem List: 1. Anemia 2. Hematoma 3. Influenza A 4. COPD exacerbation Pain Ratin Pain Location: generalized Pain Goal: Pain 4 or less Pain Plan: none Tomorrow's Labs & Rationales: to be discharged Jose RobertoCarringtondom 09/28/17 1154: Attending MD Review Statement Attending Statement Attending MD Statement: examined this patient, discuss w/resident/PA/HOGSHEAD PACKER, agreed w/resident/PA/HOGSHEAD PACKER, reviewed EMR data (avail), discussed with nursing, discussed with case mgmt Attending Assessment/Plan: pt being dced today home with home health services. cont on tamiflu to finish 5 days and her hb stayed stable during the hospital course. d/w pt the care plan. see dc summary for more details.
== END 2017-09-28 13:00 | disposition home health service (06) | DRG 872 ==
LOC: ERH 05:34 → ERHI 08:03 → 1NO 08:03 → ENRESERV 13:48 → ENTRNSPT 14:51 → 1NO 15:01 → CMPTRNSPT 15:20 → 1NO 09-27 11:01 → ENPENDDIS 09-28 10:42 → 1NO 09-28 13:00
PROVIDERS: Pediatrics; Student in an Organized Health Care Education/Training Program
DX: A41.89 Other specified sepsis (principal); D51.3 Other dietary vitamin B12 deficiency anemia; D62 Acute posthemorrhagic anemia; J44.1 Chronic obstructive pulmonary disease with (acute) exacerbation; J10.1 Influenza due to other identified influenza virus with other respiratory manifestations; S30.0XXA Contusion of lower back and pelvis, initial encounter; E11.9 Type 2 diabetes mellitus without complications; Z79.84 Long term (current) use of oral hypoglycemic drugs; R74.0 Nonspecific elevation of levels of transaminase and lactic acid dehydrogenase [LDH]; Z95.1 Presence of aortocoronary bypass graft; G47.00 Insomnia, unspecified; Z86.711 Personal history of pulmonary embolism; K59.00 Constipation, unspecified; R91.1 Solitary pulmonary nodule; E87.6 Hypokalemia; F41.9 Anxiety disorder, unspecified; F32.9 Major depressive disorder, single episode, unspecified; Z86.73 Personal history of transient ischemic attack (TIA), and cerebral infarction without residual deficits; Z79.02 Long term (current) use of antithrombotics/antiplatelets; I10 Essential (primary) hypertension
CPT/HCPCS: 1NP; 36415; 71046; 74176; 80307; 81003; 82436; 87040; 87086; 87804; 87804-59; 93005; 93010; 96374; 96375; 97116-GO; 97161-GP; 99291; J0131; J0456; J0696; J2920; J2930; J3420; J3490; J7040; J7060